=== PATIENT | female | born 1985 | race Caucasian/White ===

== ENCOUNTER 2016-09-30 15:52 | Inpatient (IN) | payer BC, OTHER ==
[~2016-09-30] VITALS: Ht 170.2 cm; Wt 61.2 kg
[2016-09-30] MEDS ORDERED: DIAZEPAM 10 MG TABLET PO PRN ×2 (18:00)
[2016-09-30] MEDS ORDERED: METHOCARBAMOL 750 MG TABLET PO PRN (18:00)
[2016-09-30] MEDS ORDERED: MIRALAX 17 GM POWD.PACK PO PRN (18:00)
[2016-09-30] MEDS ORDERED: HYDROXYZINE PAMOATE 25 MG CAPSULE PO PRN (18:00)
[2016-09-30] MEDS ORDERED: DIAZEPAM 5 MG TABLET PO PRN (18:00)
[2016-09-30] MEDS ORDERED: MAGNESIUM HYDROXIDE 30 ML LIQUID UDC PO PRN (18:00)
[2016-09-30] MEDS ORDERED: diphenhydrAMINE 50 MG CAPSULE PO PRN (18:00)
[2016-09-30] MEDS ORDERED: ACETAMINOPHEN 325 MG TABLET PO PRN (18:00)
[2016-09-30] MEDS ORDERED: LORAZEPAM 2 MG/1 ML VIAL IM PRN (18:00)
[2016-09-30] MEDS ORDERED: DICYCLOMINE HCL 20 MG TABLET PO PRN (18:00)
[2016-09-30] MEDS ORDERED: BUPRENORPHINE HCL 2 MG TAB.SUBL SL PRN (18:00)
[2016-09-30] MEDS ORDERED: THIAMINE HCL 200 MG/2 ML VIAL IM ONE (18:00)
[2016-09-30] MEDS ORDERED: PROMETHAZINE HCL 25 MG/1 ML VIAL IM PRN (18:00)
[2016-09-30] MEDS ORDERED: LOPERAMIDE HCL 2 MG CAPSULE PO PRN ×2 (18:00)
[2016-09-30 18:40] VITALS: BP 110/76; TEMP 97.9
--- NOTE | 2016-09-30 18:40 | NUR ---
Pre-admission note Pt is a 31 y/o female being admitted to [facility] under the care of Dr. Wise. Pt is in stable condition at this time, understands the detox process and wants to be admitted. Pts VS: BP: 110/76, T: 97.9, RR18, SpO2: 100%, P: 112, Pain: 9/10 Height: 5'7" Weight: 135 lb Pt reports taking Heroin, Xanax, alcohol, phenobarbital and occasional use of meth. Pt reports Hx of a Epilepsy.
[2016-09-30 20:00] VITALS: BP 117/78; TEMP 98.1
[2016-09-30] MEDS ORDERED: BUPRENORPHINE HCL 2 MG TAB.SUBL SL SCH (20:00)
[2016-09-30] MEDS ORDERED: DIAZEPAM 10 MG TABLET PO SCH (20:00)
[2016-09-30] MEDS: PHENOBARBITAL 32.4 MG TABLET PO SCH (20:11)
[2016-09-30] MEDS: LEVETIRACETAM 500 MG TABLET PO SCH (20:12)
[2016-09-30] MEDS: SULFAMETH/TRIMETH 800/160 MG TABLET PO SCH (20:12)
[2016-09-30] MEDS: LACTOBACILLUS RHAMNOSUS GG 1 EACH CAPSULE PO SCH (20:12)
[2016-09-30] MEDS: GABAPENTIN 400 MG CAPSULE PO SCH (20:19)
--- NOTE | 2016-09-30 20:45 | NUR ---
ADMISSION NOTE: NEW AD[facility] 31 [facility]; PRE-ADMISSION ASSESSMENT COMPLETED BY DAY SHIFT NURSE. UDS COLLECTED BY DAY SHIFT NURSE. VS: 117/78, 104, 98.1, 18, 100% SPO2 ON RA. COWS IS 9, CIWA IS 9: PT REPORTS ANXIETY, AGITATION, DIAPHORESIS, SEVERE PAIN, EMESIS, NAUSEA, DIARRHEA, TREMOR. HEIGHT IS 57 AND WEIGHT BY BED SCALE IS 135 LBS. PT REPORTS NKDA/NKFA. PT DENIES HAVING PCP. PT ADMITTED UNDER THE CARE OF DR MATHIAS AND HAS ALREADY BEEN EVALUATED. PT REPORTS THE FOLLOWING SUBSTANCE USE: PT REPORTS BEING SOBER FOR TWO YEARS (08/21/2013 TO 2016) AND THEN RELAPSING ONE YEAR AGO. XANAX: PT REPORTS TAKING 10-20MG DAILY. PATIENT REPORTS TAKING XANAX FOR 13 YEARS, AND USING AT THIS RATE FOR 1 YEAR. LAST USE WAS 10MG ON 09/28/16. ETOH: PT REPORTS DRINKING 500ML VODKA DAILY. PATIENT REPORTS DRINKING FOR 13 YEARS, AND AT THIS RATE FOR 1 YEAR. LAST DRINK WAS 5 SHOTS VODKA ON 09/29/16. HEROIN (IV): PT REPORTS USING 3-4GM DAILY. PATIENT REPORTS USING HEROIN FOR 13 YEARS, AND USING AT THIS RATE FOR 1 YEAR. LAST USE WAS 1GM ON 09/28/16. PATIENT REPORTS TAKING NON-PRESCRIBED 8MG BUPRENORPHINE AND 1MG ATIVAN TO CONTROL WITHDRAWAL S/S ON THE DAY OF ADMISSION. PATIENT REPORTS USING 1GM METHAMPHETAMINE (IV) INTERMITTENTLY FOR THE PAST YEAR. LAST USE WAS 1GM ON 09/22/16. PT REPORTS SMOKING ONE PACK CIGARETTES DAILY FOR 18 YEARS. WRITTEN SMOKING CESSATION EDUCATION PROVIDED. PT VERBALIZES UNDERSTANDING. PT REPORTS LAST TREATMENT/DETOX ADMISSION WAS [facility] [place], WHERE SHE LEFT AMA AFTER "A FEW DAYS". PT STATES THAT SHE HAS BEEN TO MULTIPLE TREATMENT AND DETOX FACILITIES IN THE PAST, BUT ALWAYS LEAVES AMA AFTER A FEW DAYS. PT REPORTS PMHX OF EPILEPSY, WITH LAST SEIZURE 07/2016; FIBROMYALGIA, CROHN'S DISEASE, PANIC DO, PTSD. HOME MEDICATIONS HAVE BEEN RECONCILED. PT IS AMBULATORY WITH STEADY GAIT. A&OX4 AND NOTED TO BE AGITATED, DIAPHORETIC, WITH C/O NAUSEA AND DIARRHEA. REPORT RECEIVED FROM DAY SHIFT NURSE THAT PT HAS MULTIPLE TRACK TORRES, BUT PT REFUSES PHOTOS OF SITES OTHER THAN RIGHT FOREARM/WRIST. PHOTO PLACED IN CHART. PT DENIES CURRENT OR HX OF SI/HI. LUNGS ARE CTA THROUGHOUT, RESPIRATIONS ARE EVEN AND UNLABORED. PT DENIES COUGH/SOB. HEART SOUNDS REGULAR. BOWEL SOUNDS ACTIVE IN ALL QUADRANTS. ABDOMEN IS SOFT, NON-DISTENDED, NON-TENDER.
[2016-09-30] MEDS ORDERED: POTASSIUM CHLORIDE 20 MEQ TAB.PRT.SR PO ONE (22:00)
--- NOTE | 2016-09-30 22:00 | NUR ---
PRN'S Subutex, Valium, Clonidine, Robaxin, Benadryl: Patient complains of anxiety, agitation, severe pain and myalgia, diaphoresis, diarrhea, emesis x2, myalgia, tremor, tactile disturbances. COWS is 20 and CIWA is 19. Administered PRN Subutex 4mg SL as ordered according to COWS score, and PRN Valium 20mg PO as ordered according to CIWA score. Patient also requests PRN Clonidine for anxiety and diaphoresis, PRN Robaxin for myalgia and 9/10 pain, and PRN Benadryl for inability to sleep. Will continue to monitor.
[2016-09-30] MEDS ORDERED: POTASSIUM CHLORIDE 20 MEQ TAB.PRT.SR ONE (22:02)
[2016-09-30] MEDS: CLONIDINE HCL 0.1 MG TABLET PO PRN (22:08)
--- NOTE | 2016-09-30 22:30 | NUR ---
PRN Subutex Reassessment: Patient reports a mild decrease is s/s of opiate withdrawal: tremor and diaphoresis decreased, denies any additional episodes of emesis, and pain is decreased. COWS decreased from 20 to 8 thirty minutes after PRN Subutex 4mg SL administration.
--- NOTE | 2016-09-30 23:00 | NUR ---
PRN Reassessment: Patient's CIWA score decreased from 19 to 10 one hour after PRN Valium 20mg PO administration. Pt noted with decreased tremor, diaphoresis. No c/o headache at this time, and denies any additional episodes of emesis. Patient denies myalgia at this time. PRN Robaxin and PRN Clonidine effective. Pt noted to be drowsy; will re-assess PRN Benadryl at end of shift. Fall and seizure precautions are in place, and pt continues on 1:1 with WALL AND FLOOR TILER for safety/fall risk. Will continue to monitor.
[2016-10-01] VITALS (14 sets, daily range): BP systolic 89–115; BP diastolic 53–75; PULSE 84–107; RESP 12–18; TEMP 97.4–98.3
[2016-10-01] MEDS ORDERED: ROBAXIN500 MG PO (00:26)
[2016-10-01] MEDS ORDERED: TRAZODONE HCL300 MG PO (00:26)
[2016-10-01] MEDS ORDERED: DULOXETINE HCL60 MG PO (00:26)
[2016-10-01] MEDS ORDERED: SULFAMETHOXAZO PO (00:26)
[2016-10-01] MEDS ORDERED: CLINDAMYCIN HC300 MG PO (00:26)
[2016-10-01] MEDS ORDERED: GABAPENTIN800 MG PO (00:26)
[2016-10-01] MEDS ORDERED: CARAFATE1 GM PO (00:26)
[2016-10-01] MEDS ORDERED: ESOMEPRAZOLE MA40 MG PO (00:26)
[2016-10-01] MEDS ORDERED: VISTARIL50 MG PO (00:26)
[2016-10-01] MEDS ORDERED: ZANTAC150 MG PO (00:26)
[2016-10-01] MEDS ORDERED: QUETIAPINE FUM400 MG PO (00:26)
[2016-10-01] MEDS ORDERED: NEOSPORIN28 GM TP (00:26)
[2016-10-01] MEDS ORDERED: LEVETIRACETAM500 M1 PO (00:26)
[2016-10-01] MEDS ORDERED: MELOXICAM15 MG PO (00:26)
--- NOTE | 2016-10-01 03:20 | NUR ---
PRN Valium 10mg: Patient complains of anxiety, chills, diaphoresis, tremor. Patient noted to be agitated. CIWA is 10. Administered PRN Valium 10mg as ordered according to CIWA score. Will continue to monitor.
--- NOTE | 2016-10-01 04:00 | NUR ---
COWS/CIWA Deferred: Ordered 04:00 COWS and CIWA assessments are deferred for sleep. V/S stable. All safety precautions are in place. Will continue to monitor. Addendum: 10/01/16 at 0426 by TAE BOWERS RN Amended: Links added.
--- NOTE | 2016-10-01 04:15 | NUR ---
PRN Reassessment: Patient reports decrease in anxiety, chills, diaphoresis, and tremor. CIWA decreased from 10 to 4 one hour after PRN Valium 10mg PO administration. Will continue to monitor.
--- NOTE | 2016-10-01 07:06 | NUR ---
End of Shift Note: Pt is a 31 yo female admitted to [facility] on 09/30/16 for medically-supervised withdrawal from ETOH, opiates, and benzodiazepines. Pt reports PMHx: epilepsy, Crohn's, fibromyalgia, PTSD, and panic DO with agoraphobia . Pt reports NKDA/NKFA. Pt is on a regular diet. Pt is on 1:1 for safety: high risk for falls d/t multiple sedating medications ordered (Keppra, Pheno, Bharat, Valium, Subutex). Pt reports being sober for 2 years, and then relapsing one year ago. Pt has been taking 10-20mg Xanax, using 3-4gm IV heroin, and drinking 500ml vodka daily for one year. Pt is on 5-day Subutex and Valium tapers. Scheduled medication regime managed s/s of withdrawal this shift, in addition to multiple PRN medications: PRN Subutex 4mg for COWS 20, PRN Valium 20mg for CIWA 19, PRN Clonidine for anxiety, PRN Robaxin for myalgia, and PRN Valium 10mg for CIWA 10: all effective. Last COWS=7, CIWA=4. Pt c/o multiple episodes of emesis and diarrhea, but URBAN SOCIOLOGIST reports that she did not observe or hear incidents, and pt refuses Zofran and Imodium. PRN Benadryl was given for inability to sleep, which was not effective as pt slept only 4 hours. V/S stable throughout shift, with decreased BP of 91/58 at 00:00. Total fluid intake this shift: 1802 ml; output: urine x 5 and BM x 1. Pt is currently in bed, all needs have been attended and met. Pt endorsed to day shift nurse.
--- NOTE | 2016-10-01 07:30 | NUR ---
START OF SHIFT Rcvd endorsement from night nurse, client is in room, she sound asleep, easy to arouse, RR 16 even and non-labored. 1:1 sitter for fall prevention safety for first 24 hours during induction process of withdrawal management; patient noted to be receiving multiple psychoactive substances that can increase risk of oversedation or falls. Client admitted for medically-supervised withdrawal from ETOH, opiates, and benzodiazepines. NKDA/NKFA. Regular diet (No Pork). PRN Subutex 4mg for COWS 20, PRN Valium 20mg for CIWA 19, PRN Clonidine for anxiety, PRN Robaxin for myalgia, and PRN Valium 10mg for CIWA 10: all effective. Last COWS 7/CIWA 4. PRN Benadryl was given for inability to sleep, ineffective she slept 4 hours. She is on antibiotic therapy Clindamycin 300mg Q8H for R arm abscess (6 days)and Bactrim BID for infection (1/6 x days). Seizure precautions. Side rails x 2 up/padded. Call light within reach. Will continue plan of care.
[2016-10-01] MEDS: LEVETIRACETAM 500 MG TABLET PO SCH ×3 (08:23→22:20)
[2016-10-01] MEDS: BUPRENORPHINE HCL 2 MG TAB.SUBL SL SCH ×4 (08:23→21:50)
[2016-10-01] MEDS: FOLIC ACID 1 MG TABLET PO SCH (08:23)
[2016-10-01] MEDS: MULTIVITAMINS,THERAPEUTIC TABLET PO SCH (08:23)
[2016-10-01] MEDS: SULFAMETH/TRIMETH 800/160 MG TABLET PO SCH (08:23)
[2016-10-01] MEDS: PHENOBARBITAL 32.4 MG TABLET PO SCH (08:23)
[2016-10-01] MEDS: GABAPENTIN 400 MG CAPSULE PO SCH ×3 (08:23→16:10)
[2016-10-01] MEDS: LACTOBACILLUS RHAMNOSUS GG 1 EACH CAPSULE PO SCH (08:23)
[2016-10-01] MEDS: CLINDAMYCIN HCL 300 MG CAPSULE PO SCH ×2 (08:24→15:55)
[2016-10-01] MEDS: THIAMINE HCL 100 MG TABLET PO SCH (08:24)
[2016-10-01] MEDS ORDERED: TUBERCULIN,PURIF.PROT.DERIV. 5 TU/0.1 ML TEST ID ONE (09:00)
[2016-10-01] MEDS ORDERED: DIAZEPAM 10 MG TABLET PO SCH (09:00)
--- NOTE | 2016-10-01 10:00 | NUR ---
Client refused TB test. Dr. Wise notified.
[2016-10-01] MEDS ORDERED: DIAZEPAM 10 MG TABLET PO ONE (12:00)
[2016-10-01] MEDS ORDERED: PANTOPRAZOLE SODIUM 40 MG TABLET.DR PO ONE (12:45)
[2016-10-01] MEDS: HYDROXYZINE PAMOATE 25 MG CAPSULE PO SCH ×3 (12:46→21:50)
--- NOTE | 2016-10-01 12:49 | NUR ---
DR. MARTI, ORDERED AN ECG D/T ON MEDICATION THAT MAY PROLONG QT INVERVAL, CLIENT VERBALIZED UNDERSTANDING.
[2016-10-01] MEDS ORDERED: HYDROXYZINE PAMOATE 100 MG PO SCH (13:00)
--- NOTE | 2016-10-01 13:07 | NUR ---
MD communication Pt has a Hgb of 7.74 [address] Hct of 24. Dr Wise notified, stated he would come and talk to pt. Will continue to monitor pt.
[2016-10-01] MEDS ORDERED: BUPRENORPHINE HCL 2 MG TAB.SUBL SL ONE (13:45)
[2016-10-01] MEDS: ONDANSETRON ODT 4 MG TAB.RAPDIS SL PRN ×2 (14:04→21:38)
--- NOTE | 2016-10-01 14:04 | NUR ---
PRN Zofran 4mg Client with an episode of emesis and continuos nausea, PRN Zofran 4mf SL administered. Saltine crackers and miles destinee offered. Will continue to monitor.
[2016-10-01] MEDS ORDERED: diphenhydrAMINE 50 MG CAPSULE PO PRN (14:15)
[2016-10-01] MEDS ORDERED: ACETAMINOPHEN 325 MG TABLET PO PRN (14:15)
[2016-10-01] MEDS: DIAZEPAM 10 MG TABLET PO SCH ×3 (14:18→22:20)
[2016-10-01] MEDS: PHENOBARBITAL 60 MG TABLET PO SCH (14:18)
[2016-10-01] MEDS ORDERED: PHENOBARBITAL 32.4 MG TABLET PO SCH (15:00)
--- NOTE | 2016-10-01 15:04 | NUR ---
Reassessment PRN Zofran 4mg Client reports no more episode of emesis and relief from nausea, PRN Zofran 4mg effective. Will continue to monitor.
[2016-10-01] MEDS: DULOXETINE 60 MG CAPSULE.DR PO SCH (16:10)
--- NOTE | 2016-10-01 17:05 | NUR ---
MD communication Notified Dr Wise of EKG results: sinus tachycardia, possible anterior infarct, age undermined, abnormal ECG. NNO at this time.
--- NOTE | 2016-10-01 17:14 | NUR ---
PERIPHERAL IV ON RIGHT UPPER ARM (20G) X 2 ATTEMPTS, CLIENT TOLERATED WELL.
--- NOTE | 2016-10-01 17:15 | NUR ---
client states "I do not want the blood transfusion at this time." Educate client of the need for blood transfusion d/t her hgb and hct. She stated "I know, I know, but I don't want it right now." Charge nurse and MD notified.
--- NOTE | 2016-10-01 17:45 | NUR ---
Client c/o two episodes of oral regurgitation, d/t binge eating, Dr. Wise notified. Sitter noted client putting finger in her mouth prior to empty her stomach.
[2016-10-01] MEDS ORDERED: DIAZEPAM 10 MG TABLET PO PRN ×2 (18:45)
[2016-10-01] MEDS ORDERED: BUPRENORPHINE HCL 2 MG TAB.SUBL SL PRN (18:45)
[2016-10-01] MEDS ORDERED: DIAZEPAM 5 MG TABLET PO PRN (18:45)
--- NOTE | 2016-10-01 19:10 | NUR ---
Start of Shift Note: Report received from day shift nurse. Pt is a 31yo female admitted on 09/30/16 for opiate, benzodiazepine, and ETOH dependence. Pt reports using Xanax 10-20mg/day, heroin IV 3-4gm/day, and drinking 500mL vodka daily for one year. Pt continues on 5-day Valium and Subutex tapers. Pt received with last COWS=9, CIWA=7, and PRN Zofran was given during day shift. Pt on regular diet and reports NKDA/NKFA. Pt reports PMHx: epilepsy (Keppra, Pheno, and Bharat ordered for management, last sz 07/2016), fibromyalgia, Crohn's, PTSD, and panic DO with agoraphobia. Pt to start blood transfusion, one unit, for low H&H. New ECG results, possible infarct. Stool sample collection endorsed, pt aware. Pt received in room, noted to be drowsy but continues to ask for medications. Bed is in low position and locked, side rails up x2, call light within reach. Pt continues on 1:1 for safety/fall risk. Will continue to monitor.
--- NOTE | 2016-10-01 19:14 | NUR ---
Blood transfusion running, vitals prior to administration wnl, two RN's follow protocol. Client in bed, she verbalized understanding regarding bllod transfusion.
--- NOTE | 2016-10-01 19:28 | NUR ---
End of Shift Note: Pt is a 31 yo female admitted to [facility] on 09/30/16 for medically-supervised withdrawal from ETOH, opiates, and benzodiazepines. Peripheral IV on R upper arm (20G). Pt is on modified 5-day Subutex and Valium tapers. Scheduled medication regime managed s/s of withdrawal this shift, Zofran PRN for emesis x 1 episode, effective.Last COWS 9/CIWA 7. Client c/o two episodes of oral regurgitation, d/t binge eating, Dr. Wise notified. aeronautics teacher Benadryl 50mg and Tylenol 650mg 0.5 hr prior to blood transfusion. Pt is currently in bed, receiving transfusion, all needs have been attended and met. Pt endorsed to night nurse.
--- NOTE | 2016-10-01 19:28 | NUR ---
End of Shift Note: Pt is a 31 yo female admitted to [facility] on 09/30/16 for medically-supervised withdrawal from ETOH, opiates, and benzodiazepines. Pheripheral IV on R upper arm (20G). Pt is on modified 5-day Subutex and Valium tapers. Scheduled medication regime managed s/s of withdrawal this shift, Zofran PRN for emesis x 1 episode, effective.Last COWS 9/CIWA 7. Client c/o two episodes of oral regurgitation, d/t binge eating, Dr. Wise notified. call center manager Benadryl 50mg and Tylenol 650mg 0.5 hr prior to blood transfusion. was given for inability to sleep, which was not effective as pt slept only 4 hours. V/S stable throughout shift, with decreased BP of 91/58 at 00:00. Total fluid intake this shift: 1802 ml; output: urine x 5 and BM x 1. Pt is currently in bed, all needs have been attended and met. Pt endorsed to day shift nurse. Addendum: 10/01/16 at 1957 by AILYN DOMINIQUE RN error
[2016-10-01] MEDS ORDERED: QUETIAPINE FUMARATE 400 MG PO SCH (21:00)
[2016-10-01] MEDS ORDERED: PHENOBARBITAL 60 MG TABLET PO SCH (21:00)
[2016-10-01] MEDS: QUETIAPINE FUMARATE 200 MG TABLET PO SCH (21:50)
--- NOTE | 2016-10-01 21:51 | NUR ---
Transfusion End/Behavioral Note/Meds Late: Pt completed blood transfusion and IV NS running TKO and clear line. Pt became agitated that her 21:00 scheduled medications were not going to be administered all at one time d/t over-sedation and decreased BP throughout transfusion. RN informed pt that she would be administered scheduled Valium and Keppra for seizure-prevention and then administered remaining medications after one hour to re-evaluate BP and sedation. Pt became verbally abusive with staff members and demanded she be disconnected from IV. Multiple staff members (primary nurse, COOK APPRENTICE PASTRY, client services representative, and charge nurse) spoke to pt regarding medication safety and MD order. Pt educated on risks and benefits but became increasingly agitated, and IV was disconnected at 21:51 and site flushed and kept SL. Pt continued to argue with staff members, demanding all of her medications be administered all at once. Pt noted with unsteady gait, slurring words, with difficulty keeping eyes open. Pt states, "I'm going to rip out this IV if you don't give me all of my meds". Pt educated on risks and benefits but ripped out IV at 22:15. Pressure applied to site and dressed with sterile gauze. Administered 21:00 scheduled Keppra and Valium late, at 22:20. Pt re-evaluated for alertness, and remaining medications except for Subutex, Seroquel, and Vistaril administered at 00:28. Will continue to monitor. Addendum: 10/02/16 at 0131 by TAE BOWERS RN Pt tolerated transfusion well. No A/R observed or reported. V/S stable throughout procedure without significant deviation from baseline. Addendum: 10/02/16 at 0230 by TAE BOWERS RN MD conner
--- NOTE | 2016-10-01 22:00 | NUR ---
MD Communication: MD made aware of behavioral incident, IV removal, over-sedation, decreased BP, meds administered late, and meds held for sedation.
[2016-10-02] VITALS (7 sets, daily range): BP systolic 85–133; BP diastolic 56–92; TEMP 97.7–98.7
[2016-10-02] MEDS: ONDANSETRON ODT 4 MG TAB.RAPDIS SL PRN (00:12)
--- NOTE | 2016-10-02 00:15 | NUR ---
PRN Zofran: BARTACKER on 1:1 reports observing pt vomiting on smoking patio. Emesis x2 reported. Pt reports that she is still nauseous. Administered PRN Zofran ODT as ordered. Will continue to monitor.
[2016-10-02] MEDS: SULFAMETH/TRIMETH 800/160 MG TABLET PO SCH ×3 (00:28→21:05)
[2016-10-02] MEDS: LACTOBACILLUS RHAMNOSUS GG 1 EACH CAPSULE PO SCH ×3 (00:28→21:05)
[2016-10-02] MEDS: PHENOBARBITAL 60 MG TABLET PO SCH ×4 (00:28→21:07)
[2016-10-02] MEDS: GABAPENTIN 400 MG CAPSULE PO SCH ×3 (00:29→12:38)
--- NOTE | 2016-10-02 00:45 | NUR ---
PRN Zofran Reassessment: Patient denies any additional episodes of emesis and reports that she is no longer nauseous. PRN Zofran effective. Will continue to monitor.
--- NOTE | 2016-10-02 04:00 | NUR ---
COWS/CIWA Deferred: COWS and CIWA assessments are deferred for sleep. V/S stable. All safety precautions are in place. Will continue to monitor. Addendum: 10/02/16 at 0438 by TAE BOWERS RN Amended: Links added.
[2016-10-02] MEDS: PANTOPRAZOLE SODIUM 40 MG TABLET.DR PO SCH (06:42)
--- NOTE | 2016-10-02 07:06 | NUR ---
End of Shift Note: Pt is a 31 yo female admitted to [facility] on 09/30/16 for medically-supervised withdrawal from ETOH, benzodiazepines, and opiates. Pt reports PMHx: Crohn's disease, epilepsy (managed with pheno, Keppra, Bharat), fibromyalgia, PTSD, and panic DO with agoraphobia. Pt reports NKDA/NKFA and is on a regular diet. Pt is on 1:1 for safety/fall risk. Pt reports being sober for 2 years, relapsing one year ago, and then taking 10-20mg Xanax, using 3-4gm IV heroin, and drinking 500ml vodka daily. Pt is on 5-day Subutex and 6-day Valium tapers. Pt received one unit of blood this shift for low hct and hgb, pt tolerated procedure well. Medications administered late d/t sedation, and scheduled Subutex, Vistaril, and Seroquel held. Pt had behavioral incident this shift regarding medication, and removed IV. PRN Zofran was given for emesis x2 and nausea, which was effective. Endorsed stool sample collection not completed this shift as pt did not have a bowel movement. Last COWS=9, CIWA=6. V/S stable throughout shift, with decreased BP of 89/53 at 20:00 and 85/56 at 04:00, and elevated HR of 107 at 20:00 and 101 at 00:00. Total fluid intake this shift: 450 ml; output: urine x 3 and BM x 0. Pt is currently in bed, slept 7 hours this shift, all needs have been attended and met. Pt endorsed to day shift nurse.
--- NOTE | 2016-10-02 08:05 | NUR ---
START OF SHIFT: RECEIVED PT A/O X 4. SHE REPORTS RUNNY NOSE,ANXIETY AND RESTLESSNESS. CIWA 3 COWS 4. SHE IS HYPER FOCUSED ON MEDICATIONS. 1:1 SITTER AT BEDSIDE. PT INSTRUCTED TO USE W/C TO GO DOWNSTAIRS TO [facility] FOR SAFETY. VALIUM/SUBUTEX TAPER. PHENOBARB. AND KEPPRA TO PREVENT SEIZURES. SZ PRECAUTIONS NOTED. ENCOURAGED INCREASED FLUIDS TO ASSIST IN FACILITATING DETOX PROCESS. ENCOURAGED GROUP ATTENDANCE TO IMPROVE COPING SKILLS. WILL CONTINUE TO MONITOR AND OFFER SUPPORT.
[2016-10-02] MEDS ORDERED: BUPRENORPHINE HCL 2 MG TAB.SUBL SL SCH (09:00)
[2016-10-02] MEDS ORDERED: DIAZEPAM 10 MG TABLET PO SCH (09:00)
[2016-10-02] MEDS: MULTIVITAMINS,THERAPEUTIC TABLET PO SCH (09:39)
[2016-10-02] MEDS: HYDROXYZINE PAMOATE 25 MG CAPSULE PO SCH ×4 (09:39→21:08)
[2016-10-02] MEDS: DULOXETINE 60 MG CAPSULE.DR PO SCH ×2 (09:40→16:10)
[2016-10-02] MEDS: FOLIC ACID 1 MG TABLET PO SCH (09:40)
[2016-10-02] MEDS: THIAMINE HCL 100 MG TABLET PO SCH (09:40)
[2016-10-02] MEDS: DIAZEPAM 10 MG TABLET PO SCH ×4 (09:41→21:08)
[2016-10-02] MEDS: LEVETIRACETAM 500 MG TABLET PO SCH ×2 (09:41→21:06)
[2016-10-02] MEDS: BUPRENORPHINE HCL 2 MG TAB.SUBL SL SCH ×4 (09:42→21:08)
[2016-10-02] MEDS: GABAPENTIN 300 MG CAPSULE PO SCH ×2 (16:09→21:05)
[2016-10-02] MEDS: BACLOFEN 20 MG TABLET PO PRN (16:10)
--- NOTE | 2016-10-02 18:25 | NUR ---
END OF SHIFT: PT CONTINUES ON MODIFIED SUBUTEX/ATIVAN TAPER. LAST COWS 4 CIWA 3. SHE REPORTED ANXIETY,CHILLS AND SWEATS THIS AM. 1:1 SITTER AT BEDSIDE FOR SAFETY. PT ATTENDED GROUPS. VOMITING AFTER EATING X 2 TODAY. SHE STATES IT DOES NOT HAPPEN ON PURPOSE AND IS NOT RELATED TO HER ED. SHE STATES SHE ALWAYS HAS TROUBLE KEEPING FOOD DOWN WHEN SHE IS DETOXING. SHE C/O ACHES IN HER BACK THIS AFTERNOON. PRN BACLOFEN GIVEN AND EFFECTIVE.PT'S BEHAVIOR WAS APPROPRIATE ON DAY SHIFT.
--- NOTE | 2016-10-02 20:00 | NUR ---
START OF SHIFT NOTE RECEIVED PATIENT IN THE ROOM. PATIENT ALERT AND ORIENTED X 3. RESPIRATION EVEN AND UNLABORED. PATIENT REPORTS ABDOMINAL CRAMPING, CHILLS, STUFFY NOSE, SWEATING, GENERALIZED BODY ACHES 10/30. PATIENT STATES SHE ATTENDED GROUPS BUT NOT THE LAST ONE BECAUSE SHE WAS TIRED. NO N/V AT THIS TIME. RECEIVED REPORT FROM DAY SHIFT NURSE, PATIENT IS A 31 YEAR OLD FEMALE, ADMITTED FOR BENZO/ETOH /OPIATE DEPENDENCE. PATIENT IS ON 5 DAY VALIUM AND 5 DAY SUBUTEX TAPER. PATIENT IS FULL CODE, REGULAR DIET ( NO PORK) AND NO KNOWN ALLERGY. PATIENT REPORTS PMH OF EPILEPSY , FIBROMYALGIA, CROHN'S , PTSD AND PANIC D/O WITH AGORAPHOBIA. PATIENT HAD SEIZURE HISTORY LAST ONE WAS 07/2016. PATIENT IS ON 1:1 FOR SAFETY D/T MED SEDATION (PHENO,KEPPRA, SUBUTEX AND VALIUM ). PATIENT IS ON ANTIBIOTIC FOR RIGHT FOREARM ABSCESS. POTASSIUM WAS REPLACED, PATIENT WITH ABNORMAL EKG, MD AWARE. LAST COWS 4 AND CIWA 3. PER DAY SHIFT NURSE, PATIENT HAD EMESIS X2 AFTER EATING BUT REFUSES TO TAKE ANY MEDICATION. PRN BACLOFEN GIVEN DURING THE DAY. ON FALL/SEIZURE PRECAUTION.SAFETY MEASURES IN PLACE. CALL LIGHT IN REACH. WILL CONTINUE TO MONITOR.
[2016-10-02] MEDS: PRAZOSIN HCL 1 MG CAPSULE PO SCH (21:06)
[2016-10-02] MEDS: QUETIAPINE FUMARATE 200 MG TABLET PO SCH (21:07)
[2016-10-03] VITALS: BP 93/69; TEMP 97.6
[2016-10-03 04:00] VITALS: BP 86/59; TEMP 97.1
[2016-10-03] MEDS: PANTOPRAZOLE SODIUM 40 MG TABLET.DR PO SCH (07:16)
--- NOTE | 2016-10-03 07:34 | NUR ---
END OF SHIFT NOTE MONITORED PATIENT THROUGHOUT THE NIGHT. PATIENT REMAIN STABLE. RESPIRATION EVEN AND UNLABORED. PATIENT REPORTED ABDOMINAL CRAMPING, CHILLS, STUFFY NOSE, SWEATING, GENERALIZED BODY ACHES 6/10 DURING SHIFT. PATIENT STATES SHE ATTENDED GROUPS BUT NOT THE LAST ONE BECAUSE SHE WAS TIRED. PATIENT VOMITED X 1 AFTER EATING, PATIENT DID NOT WANT ZOFRAN. PATIENT CONTINUE ON 5 DAY VALIUM AND 5 DAY SUBUTEX TAPER, TOLERATED WELL. PATIENT CONTINUE ON 1:1 FOR SAFETY D/T MED SEDATION (PHENO,KEPPRA, SUBUTEX AND VALIUM ). PATIENT IS ON ANTIBIOTIC FOR RIGHT FOREARM ABSCESS WITH NO ADVERSE REACTION. ENCOURAGE FLUIDS. PATIENT DID NOT RECEIVE ANY PRN MEDICATION DURING SHIFT. PATIENT EDUCATED ON MEDICATIONS AND IT'S EFFECTS. ON FALL/SEIZURE PRECAUTION.SAFETY MEASURES IN PLACE. CALL LIGHT IN REACH. WILL CONTINUE TO MONITOR. SLEPT 7 HOURS. FLUID INTAKE 829 ML. VOIDED X 2. NO BM. LAST COWS 2 AND CIWA 1.
--- NOTE | 2016-10-03 07:45 | NUR ---
START OF SHIFT Rcvd endorsement from night nurse, client is in room, she sound asleep, easy to arouse, RR 16 even and non-labored. 1:1 sitter for fall prevention safety, patient noted to be receiving multiple psychoactive substances that can increase risk of oversedation or falls. Client admitted for medically-supervised withdrawal from ETOH, opiates, and benzodiazepines. NKDA/NKFA. Regular diet (No Pork). She had an uneventful night. Last COWS 2/CIWA 1. She is on antibiotic therapy Bactrim BID for infection (4/5 x days). Seizure precautions. Side rails x 2 up/padded. Call light within reach. Will continue plan of care.
[2016-10-03 08:55] VITALS: BP 110/81; TEMP 97.5
[2016-10-03] MEDS: BUPRENORPHINE HCL 2 MG TAB.SUBL SL SCH ×3 (08:55→22:02)
[2016-10-03] MEDS: PHENOBARBITAL 60 MG TABLET PO SCH ×3 (08:55→22:03)
[2016-10-03] MEDS: DIAZEPAM 10 MG TABLET PO SCH ×3 (08:56→22:02)
[2016-10-03] MEDS: MULTIVITAMINS,THERAPEUTIC TABLET PO SCH (08:56)
[2016-10-03] MEDS: HYDROXYZINE PAMOATE 25 MG CAPSULE PO SCH ×4 (08:56→21:41)
[2016-10-03] MEDS: SULFAMETH/TRIMETH 800/160 MG TABLET PO SCH ×2 (08:56→21:42)
[2016-10-03] MEDS: FOLIC ACID 1 MG TABLET PO SCH (08:56)
[2016-10-03] MEDS: DULOXETINE 60 MG CAPSULE.DR PO SCH ×2 (08:56→17:28)
[2016-10-03] MEDS: GABAPENTIN 300 MG CAPSULE PO SCH ×4 (08:56→21:42)
[2016-10-03] MEDS: LEVETIRACETAM 500 MG TABLET PO SCH ×2 (08:56→21:40)
[2016-10-03] MEDS: THIAMINE HCL 100 MG TABLET PO SCH (08:56)
[2016-10-03] MEDS: LACTOBACILLUS RHAMNOSUS GG 1 EACH CAPSULE PO SCH ×2 (08:56→21:41)
[2016-10-03] MEDS ORDERED: DIAZEPAM 5 MG TABLET PO SCH (09:00)
[2016-10-03] MEDS ORDERED: BUPRENORPHINE HCL 2 MG TAB.SUBL SL SCH ×2 (09:00→15:00)
--- NOTE | 2016-10-03 11:00 | NUR ---
Rose reports one episode of emesis, after large quantity of food ingested. Encourage client to eat smaller meals, more often of she needs to, in order to avoid emesis. She stated' "I did not eat a lot, but I have trouble keeping food due to nausea while detoxing." She denies any nausea at this time. Will continue to monitor.
[2016-10-03 12:00] VITALS: BP 112/69; TEMP 98.7
--- NOTE | 2016-10-03 12:50 | NUR ---
nursing notes Client reports generalized body aches 01/30, she refused PRN at this time stating "No, I just wait take my gabapentin, that usually helps." Sitter at bedside promoting safety. Call light within reach. Will continue to monitor.
--- NOTE | 2016-10-03 13:50 | NUR ---
Client reports relief from generalized body aches 06/01, but manageable. Call light within reach. Will continue to monitor.
--- NOTE | 2016-10-03 14:00 | NUR ---
Client had another episode of emesis, after binge eating. Charge nurse and Dr. Wise notified, NNO at this time. Client refused medications to assist with emesis or nausea, she stated "No, it will get better, it happens when I am in detox." Sitter at bedside.
[2016-10-03] MEDS: CLONIDINE HCL 0.1 MG TABLET PO PRN (14:59)
--- NOTE | 2016-10-03 14:59 | NUR ---
PRN Clonidine 0.1mg for irritability, hot/cold chills. Will continue to monitor.
--- NOTE | 2016-10-03 15:59 | NUR ---
Reassessment PRN Clonidine Client is in bed, sound asleep, RR 16, even, non-labored. Clonidine effective.
[2016-10-03] MEDS ORDERED: METHYL SALICYLATE/MENTHOL CREAM 28 GM TUBE TOP PRN (16:15)
[2016-10-03 16:55] VITALS: BP 107/69; TEMP 98.1
--- NOTE | 2016-10-03 18:51 | NUR ---
PRN Bentyl, Baclofen Client reports abdominal spasm, bentyl 20mg Po administered, she complains of severe lack and legs muscle spasm baclofen 20mg PO administered. Will endorse incoming nurse to reassess.
[2016-10-03] MEDS: BACLOFEN 20 MG TABLET PO PRN (18:52)
--- NOTE | 2016-10-03 19:32 | NUR ---
END OF START Client continues on modified Diazepam/Subutex taper, tolerating well. Last COWS 7/CIWA 5. Client vomited x 2 after eating large quantities of food, she stated "... it happens when I am in detox." PRN Clonidine for irritability, hot/cold chills, noted effective. Client reports abdominal spasm, bentyl 20mg Po administered, she complains of severe lack and legs muscle spasm baclofen 20mg PO administered. Will endorse incoming nurse to reassess. Client did not attend group therapy. Adequate intake and output, void x 4, no BM. Seizure precautions. Side rails x 2 up/padded. Call light within reach. Will continue plan of care.
[2016-10-03 20:00] VITALS: BP 101/61; TEMP 97.8
--- NOTE | 2016-10-03 20:00 | NUR ---
START OF SHIFT NOTE PATIENT IN ROOM, PATIENT REPORTS HOLD AND COLD SWEATS, ANXIETY, GENERALIZED BODY ACHES , ABDOMINAL CRAMPING, STUFFY NOSE , MILD AGITATION AND IRRITABLE. RECEIVED REPORT FROM DAY SHIFT NURSE. PATIENT IS A 31 YEAR OLD FEMALE, ADMITTED FOR BENZO/ETOH/OPIATE DEPENDENCE. PATIENT IS ON 3RD DAY OF HER 5 DAY SUBUTEX AND 5 DAY VALIUM TAPER. PATIENT IS FULL CODE, REGULAR DIET ( NO PORK) AND NO KNOWN ALLERGY. CONTINUE ON 1:1 SITTER FOR SAFETY. PATIENT REPORTS PMH OF EPILEPSY, FIBROMYALGIA, CROHN'S, PTSD, PANIC D/O WITH AGORAPHOBIA AND SEIZURE, LAST ONE WAS 07/2016. PATIENT IS ON FALL/SEIZURE PRECAUTION. PATIENT ON ANTIBIOTIC FOR HER ABSCESS ON RIGHT FOREARM. PATIENT WAS GIVEN PRN CLONIDINE, BENTYL AND BACLOFEN DURING THE DAY. LAST COWS 7 AND CIWA 5. SAFETY MEASURES IN PLACE. CALL LIGHT IN REACH. WILL CONTINUE TO MONITOR.
[2016-10-03] MEDS: PROPRANOLOL HCL 10 MG TABLET PO SCH (21:00)
--- NOTE | 2016-10-03 21:00 | NUR ---
INDERAL HELD PATIENT BP 101/60, INDERAL HELD ORDERED FOR DOSE INSTRUCTION TO HOLD IF BP<100/70
[2016-10-03] MEDS: QUETIAPINE FUMARATE 200 MG TABLET PO SCH (21:41)
[2016-10-03] MEDS: DICYCLOMINE HCL 20 MG TABLET PO SCH (21:43)
[2016-10-03] MEDS: PRAZOSIN HCL 1 MG CAPSULE PO SCH (22:02)
[2016-10-04] VITALS: BP 98/62; TEMP 98
[2016-10-04 04:00] VITALS: BP 86/56; TEMP 98.2
[2016-10-04] MEDS: PANTOPRAZOLE SODIUM 40 MG TABLET.DR PO SCH (07:04)
--- NOTE | 2016-10-04 07:30 | NUR ---
start of shift note: received pt from court orderly nurse, pt is in stable condition at this time. pt remains on 1:1 for seizure precautions. pt without episodes of seizures at this time. pt is admitted to [facility] for opiate/benzo/ETOH/meth withdrawal/dependence. pt's last ciwa 1 and last cows 2. will continue to monitor pt for any changes or any A/R to medications. will encourage pt to attend groups and activities throughout the shift.
--- NOTE | 2016-10-04 07:30 | NUR ---
END OF SHIFT NOTE MONITORED PATIENT THROUGHOUT SHIFT. PATIENT REPORTED HOT AND COLD SWEATS, ANXIETY, GENERALIZED BODY ACHES , ABDOMINAL CRAMPING, STUFFY NOSE , MILD AGITATION AND IRRITABLE. CONTINUE PATIENT HER 5 DAY SUBUTEX AND 5 DAY VALIUM TAPER, TOLERATED WELL . CONTINUE ON 1:1 SITTER FOR SAFETY. PATIENT CONTINUE TO EDUCATE ON MEDICATIONS AND SIDE EFFECTS. PATIENT ON ANTIBIOTIC FOR HER ABSCESS ON RIGHT FOREARM WITH NO ADVERSE REACTION. ENCOURAGE FLUIDS. PATIENT WAS SEEN BY DR. BENNETT AND SCHEDULED INCISION AND DRAINAGE TODAY. INDERAL WAS HELD FOR BLOOD PRESSURE 101/61 AT 2100. PATIENT DID NOT REQUIRE ANY PRN MEDICATION DURING SHIFT. ON FALL/SEIZURE PRECAUTION. SAFETY MEASURES IN PLACE. CALL LIGHT IN REACH. WILL CONTINUE TO MONITOR. SLEPT 8 HOURS. FLUID INTAKE 474 ML. VOIDED X 3. NO BM. LAST COWS 2 AND CIWA 1.
[2016-10-04] MEDS ORDERED: SILVER NITRATE APPLICATOR STICK EACH TP PRN (08:00)
[2016-10-04] MEDS ORDERED: LIDOCAINE 1%-EPI 1:100,000 20 ML VIAL TP PRN (08:00)
[2016-10-04] MEDS ORDERED: BUPRENORPHINE HCL 2 MG TAB.SUBL SL SCH ×2 (09:00)
[2016-10-04] MEDS ORDERED: DIAZEPAM 5 MG TABLET PO SCH (09:00)
[2016-10-04] MEDS: MULTIVITAMINS,THERAPEUTIC TABLET PO SCH (09:00)
[2016-10-04] MEDS: LEVETIRACETAM 500 MG TABLET PO SCH ×2 (09:23→20:59)
[2016-10-04] MEDS: GABAPENTIN 300 MG CAPSULE PO SCH ×4 (09:23→20:58)
[2016-10-04] MEDS: THIAMINE HCL 100 MG TABLET PO SCH (09:24)
[2016-10-04] MEDS: PROPRANOLOL HCL 10 MG TABLET PO SCH ×2 (09:24→21:02)
[2016-10-04] MEDS: HYDROXYZINE PAMOATE 25 MG CAPSULE PO SCH ×4 (09:24→21:53)
[2016-10-04] MEDS: DULOXETINE 60 MG CAPSULE.DR PO SCH ×2 (09:24→17:00)
[2016-10-04] MEDS: DICYCLOMINE HCL 20 MG TABLET PO SCH ×3 (09:24→21:00)
[2016-10-04] MEDS: PHENOBARBITAL 60 MG TABLET PO SCH ×3 (09:25→21:00)
[2016-10-04] MEDS: FOLIC ACID 1 MG TABLET PO SCH (09:25)
[2016-10-04] MEDS: DIAZEPAM 5 MG TABLET PO SCH ×4 (09:25→21:54)
[2016-10-04] MEDS: SULFAMETH/TRIMETH 800/160 MG TABLET PO SCH ×2 (09:25→20:59)
[2016-10-04] MEDS: LACTOBACILLUS RHAMNOSUS GG 1 EACH CAPSULE PO SCH ×2 (09:25→20:58)
[2016-10-04] MEDS: BACLOFEN 20 MG TABLET PO PRN (09:35)
--- NOTE | 2016-10-04 09:35 | NUR ---
PRN ADMINISTRATION: PT VERBALIZES BACK PAIN, PAIN LEVEL 8/10. WILL REASSESS PT FOR EFFECTIVENESS
[2016-10-04 10:00] VITALS: BP 110/68; TEMP 97.6
--- NOTE | 2016-10-04 10:00 | NUR ---
PRN RE:ASSESSMENT: PT STATES BACLOFEN IS EFFECTIVE PT'S PAIN SCALE IS 3/10
--- NOTE | 2016-10-04 10:07 | NUR ---
REASSESSED PT, PT'S 1:1 WAS DISCONTINUED
[2016-10-04] MEDS ORDERED: DOCUSATE SODIUM 250 MG CAPSULE PO PRN (11:30)
[2016-10-04 13:11] VITALS: BP 119/66; TEMP 98.6
[2016-10-04] MEDS: BUPRENORPHINE HCL 2 MG TAB.SUBL SL SCH ×2 (14:37→22:00)
[2016-10-04] MEDS: QUETIAPINE FUMARATE 25 MG TABLET PO PRN (14:43)
--- NOTE | 2016-10-04 14:43 | NUR ---
PRN ADMINISTRATION: PT WAS SPEAKING WITH CAMI FROM DIRECT SALES CONSULTANT, PT WAS AGITATED AND ANXIOUS, PT RECEIVED CLONIDINE,SEROQUEL,ZOFRAN. PT VERBALIZED ANXIETY, WAS NOTED FIDGETY AND RESTLESS. AND PACING. WILL RE-ASSESS IF PRN ADMINISTRATION WAS EFFECTIVE.
[2016-10-04] MEDS: ONDANSETRON ODT 4 MG TAB.RAPDIS SL PRN (14:44)
[2016-10-04] MEDS: CLONIDINE HCL 0.1 MG TABLET PO PRN (14:44)
--- NOTE | 2016-10-04 15:00 | NUR ---
PRN ADMINISTRATION RE-ASSESSMENT: PRN MEDICATIONS GIVEN WERE EFFECTIVE, PT IS RESTING IN BED WITHOUT COMPLAINTS OF PAIN OR DISCOMFORT OR ANY NAUSEA.
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
[2016-10-04 17:41] VITALS: BP 90/60; TEMP 98.2
--- NOTE | 2016-10-04 17:50 | NUR ---
1700 MEDICATIONS WERE HELD D/T PT HEAVILY SEDATED, PT VERBALIZES SHE IS HAVING A HARD TIME SITTING UP, BUT YET CONTINUES TO VERBALIZE WANTING SUBUTEX. PTS B/P AT THIS TIME IS 90/60. PLACED A CALL TO MD. ANDREA WITH ORDERS TO HOLD MEDICATIONS.
--- NOTE | 2016-10-04 19:40 | NUR ---
END OF SHIFT NOTE: PT IS ADMITTED TO [facility] FOR OPIATE/ETOH/BENZO WITHDRAWAL/DEPENDENCE. PT WAS TAKEN OFF 1:1 PT'S GAIT IS STILL UNSTEADY AT TIMES AFTER MEDICATION ADMINISTRATION. PT AT THIS TIME IS ABLE TO PERFORM ADLS AND IS ORIENTED AND AWAKE. PT AT TIMES APPEARS TO BE MED SEEKING. PTS LAST CIWA AND COWS WAS 1 D/T PT SLEEPING AND SEDATED. PT WITHOUT PAIN OR DISCOMFORT AT THIS TIME. WILL ENDORSE PT TO PHILOSOPHY LECTURER NURSE
[2016-10-04 20:00] VITALS: BP 110/74; TEMP 98.1
--- NOTE | 2016-10-04 20:00 | NUR ---
Start of Shift Pt is a 31 year old female admitted for Benzo/ETOH/opiate/meth dependence, placed on 5 day Valium and 5 day Subutex taper. PMH: Epilepsy, Fibromyalgia, Crohn's, PTSD and Panic DO with agoraphobia. NKA, regular diet (no pork), fall/seizure precautions - last seizure 07/2016 and full code. Upon assessment, pt is oriented/awake, reports feeling restless, abdominal cramping, skin is noted to be clammy/flushed, pt appears to have unsteady gait, however is able to perform ADLs. respirations even/unlabored, denies n/v/d, denies SOB/chest pain. Taper medications to be administered. Safety measures in place, call light within reach, side rails up x2, bed locked and in low position. Will continue to monitor.
--- NOTE | 2016-10-04 21:00 | NUR ---
Incision & Drainage Incision and Drainage performed on right extremity. Incision site, intact , packed and bandaged, pt tolerated well. Wound culture sent to lab. Will continue to monitor.
[2016-10-04] MEDS: QUETIAPINE FUMARATE 200 MG TABLET PO SCH (21:53)
[2016-10-04] MEDS: PRAZOSIN HCL 1 MG CAPSULE PO SCH (21:58)
[2016-10-05] VITALS: BP 91/56; TEMP 97.9
--- NOTE | 2016-10-05 | NUR ---
Vital Signs BP 91/56, pulse 76, SpO2 98%, respirations 16, temp 97.9, no pain 0/10 CIWA/COWS deferred d/t pt sleeping - to assess while pt is awake as ordered. Safety measures in place. Will continue to monitor.
[2016-10-05 04:00] VITALS: BP 88/58; TEMP 98.7
--- NOTE | 2016-10-05 04:00 | NUR ---
Vital Signs BP 88/58, pulse 67, respirations 12, SpO2 96%, temp 98.7, no pain 0/10 CIWA/COWS deferred d/t pt sleeping - to assess while pt is awake as ordered. Safety measures in place. Will continue to monitor.
[2016-10-05] MEDS: PANTOPRAZOLE SODIUM 40 MG TABLET.DR PO SCH (06:56)
--- NOTE | 2016-10-05 07:00 | NUR ---
End of Shift Pt is a 31 year old female admitted for Benzo/ETOH/opiate/meth dependence, placed on 5 day Valium and 5 day Subutex taper. PMH: Epilepsy, Fibromyalgia, Crohn's, PTSD and Panic DO with agoraphobia. NKA, regular diet (no pork), fall/seizure precautions - last seizure 07/2016 and full code. Pt is oriented/alert, during shift, pt reported feeling restless, reported abdominal cramping, skin was noted to be clammy/flushed. Pt noted to have unsteady gait, however is able to perform own ADLs. Scheduled taper medications administered, COWS 4 and CIWA 3. Incision and Drainage performed on right extremity, pt tolerated well. Site is clean, intact, packed/bandaged. Would coultures sent to lab - pending results. No PRN medications administered. Pt slept for 8 hours, intake of 1900 ml PO and voids x2. Safety measures in place, call light within reach, side rails up x2, bed locked and in low position. Endorsed to day shift nurse.
--- NOTE | 2016-10-05 07:10 | NUR ---
Start of Shift Report from the night nurse: pt is 31 y/o female here for Benzo r/t Xanax 10-20mg /d, Etoh r/t Vodka 500mL/d opiates r/t heroin IV 3-4g/d and methamphetamine 1g intermittently for 1 yr; Valium and Subutex tapers ordered. Pt is a full code, regular diet with no pork, NKA, fall and seizure precautions ordered. Hhx: Epilepsy, fibromyalgia, Crohn's disease, PTSD, Panic d/o with agoraphobia and multiple relapses and Right Arm abscess; specialist I/D, Surg and neurology is on her case. Skin is not intact with healing s/p I&D with pending orders in process for wound care dn abtx given for tx and endorsed to take picture of wound. Endorsed to me to closely monitor the pt for sedations and to prevent oversedation with notes to call MD if I hold the Valium, Subutex or phenobarbital. Endorsed tome to monitor pt's gait r/t medications and pt has slurred speech during her shift and the sitter order was cx'd per pt's request. V/S stable yet low with the last 88/55 HR 70's while asleep in bed at 0400am. Last COWS 4 CIWA 3. Pt is asleep in room. Will cont. to monitor the pt.
[2016-10-05 08:00] VITALS: BP 101/59; TEMP 98.2
[2016-10-05] MEDS ORDERED: BUPRENORPHINE HCL 2 MG TAB.SUBL SL SCH (09:00)
[2016-10-05] MEDS: FOLIC ACID 1 MG TABLET PO SCH (09:00)
[2016-10-05] MEDS: THIAMINE HCL 100 MG TABLET PO SCH (09:00)
[2016-10-05] MEDS: PROPRANOLOL HCL 10 MG TABLET PO SCH (09:00)
[2016-10-05] MEDS: LACTOBACILLUS RHAMNOSUS GG 1 EACH CAPSULE PO SCH (09:00)
[2016-10-05] MEDS: DIAZEPAM 5 MG TABLET PO SCH ×3 (09:00→21:00)
[2016-10-05] MEDS: GABAPENTIN 300 MG CAPSULE PO SCH ×4 (09:00→21:00)
[2016-10-05] MEDS ORDERED: DIAZEPAM 5 MG TABLET PO SCH (09:00)
[2016-10-05] MEDS: DICYCLOMINE HCL 20 MG TABLET PO SCH ×3 (09:00→21:00)
[2016-10-05] MEDS: MULTIVITAMINS,THERAPEUTIC TABLET PO SCH (09:00)
[2016-10-05] MEDS: BUPRENORPHINE HCL 2 MG TAB.SUBL SL SCH ×3 (09:00→21:00)
[2016-10-05] MEDS: HYDROXYZINE PAMOATE 25 MG CAPSULE PO SCH ×4 (09:00→21:00)
[2016-10-05] MEDS: LEVETIRACETAM 500 MG TABLET PO SCH ×2 (09:00→21:00)
[2016-10-05] MEDS: PHENOBARBITAL 60 MG TABLET PO SCH (09:00)
[2016-10-05] MEDS: SULFAMETH/TRIMETH 800/160 MG TABLET PO SCH (09:00)
[2016-10-05] MEDS: DULOXETINE 60 MG CAPSULE.DR PO SCH ×2 (09:00→17:12)
--- NOTE | 2016-10-05 09:00 | NUR ---
Medication Non-Administration Pt refused Vitamins: Folic, Thiamine, MV, and refused & Bentyl 20mg scheduled and Dr. Wise notified.
[2016-10-05] MEDS: QUETIAPINE FUMARATE 25 MG TABLET PO PRN (10:42)
[2016-10-05] MEDS ORDERED: BUPRENORPHINE HCL 2 MG TAB.SUBL SL ONE (10:45)
--- NOTE | 2016-10-05 10:45 | NUR ---
Late & PRN Medications Administration, Scanner Malfunction Medications given manually since scanner is malfunctioning and IT tech's notified for repair. I assessed pt's Full name, and ID # so scheduled medications given late since pt woke up late. Pt c/o muscle tension r/t fibromyalgia; PRN Baclofen 20mg & Seroquel 25mg given for pt's internationalization, anxiety and severe irritability with pacing and stomping.
[2016-10-05] MEDS: KETOROLAC TROMETHAMINE 30 MG INJ IM PRN ×2 (11:14→17:24)
--- NOTE | 2016-10-05 11:17 | NUR ---
PRN Medication Administration & Subutex-ONCE, Scanner Malfunctioned Assessed pt's full name, , and ID#. Pt is in room pacing, anxious, pouring water on areas & repeatedly cleaning counters, getting on her knees & cleaning the floor while crying and still c/o pain on right FA s/p incision site for I/D with un-stageable, HR 125 with BP still stable at 111/66, PERRLA 4mm COWS 19; PRN Toradol 30mg IM given as ordered and Subutex 2mg SL ONCE given as ordered. Will reassess in 1H.
[2016-10-05 12:00] VITALS: BP 77/44; TEMP 97.9
--- NOTE | 2016-10-05 12:12 | NUR ---
Seizures Pt is A&O x 4 in patio and ambulating back to room after smoking with group and techs and started to have severe tremors so2 techs assisted the pt to the ground with assistance while protecting the pt's head for safety. I assessed the pt while she was on the ground and she is awake, alert, and oriented with skin intact on BUE's and BLE's, no head trauma on scalp, PERRLA 4mm, no N/V noted. Pt taken back to room via w/c and assisted to bed with seizure precautions carried out; new orders for room restriction with sitter 1:1 for safety precautions. While pt in w/c pt had recurrent tremors generalized lasting for 15 seconds. Pt was then transferred into bed with HOB semi-fowlers, afebrile, RR 14, SpO2 98% RA, low BP 77/44 left arm and reassessed 83/39 on right arm,HR 99-102 & 0/10 pain and pt then had another recurrent episode of generalized tremors lasting 30seconds; notified Dr. Wise and new orders for NS bolus 1 Liter. Will cont. to monitor the pt.
[2016-10-05] MEDS ORDERED: IV NS 1000 ML 1,000 ML IV ONE (13:00)
--- NOTE | 2016-10-05 13:00 | NUR ---
Reassessment, Low Hgb, New Orders Pt is in room asleep in bed, no seizure, no tremors and no respiratory depression, no pain, no anxiety, irritably or psychotic episodes noted COWS 1 with HR 93 CIWA 0 r/t sleep; PRN Toradol, Subutex and Seroquel are effective. Safety & seizure precautions carried out as ordered with sitter present. New orders for modified Keppra dose starting at 2100p, labs CBC, CMP, OB x1 obtained and turned into lab, liver panel, prolactin and to given IVF NS bolus 1L x1 and NS 125cc/H to tx hypotension. Decreased Hgb 8.1 with new results from today so notified Dr. Wise, RADHA and DON and no new orders at this time.
[2016-10-05] MEDS ORDERED: MAGNESIUM OXIDE 400 MG TABLET PO ONE (14:15)
[2016-10-05] MEDS ORDERED: IV NS 1000 ML 1,000 ML IV PRN (15:00)
[2016-10-05] MEDS ORDERED: PHENOBARBITAL 60 MG TABLET PO SCH (15:00)
--- NOTE | 2016-10-05 15:30 | NUR ---
PRN Medication Administration, New Orders, Medication Non-Administration Pt in bathroom vomiting lunch eaten after waking up from nap; PRN Zofran 4mg SL given as ordered. New orders for Swallow Eval, EEG, Upper gi XR with gasatrograffin, EKG, modified phenobarbital increased for seizure prevention, and labs for 10/06/16: Chem 22, Folic, T4, HCV reflex, TSH. Pt refused Bentyl 20mg ordered at 1700H. Will reassess in 30minutes.
[2016-10-05] MEDS: ONDANSETRON ODT 4 MG TAB.RAPDIS SL PRN (15:56)
[2016-10-05] MEDS: PHENOBARBITAL 32.4 MG TABLET PO SCH ×2 (15:56→21:00)
[2016-10-05 16:00] VITALS: BP 96/63; TEMP 98.3
--- NOTE | 2016-10-05 16:00 | NUR ---
Reassessment No N/V present, and pt denies nausea while eating and drinking fluids; Zofran is effective.
--- NOTE | 2016-10-05 19:36 | NUR ---
End of Shift Report to the night nurse: pt is 31 y/o female here for Benzo r/t Xanax 10-20mg /d, Etoh r/t Vodka 500mL/d opiates r/t heroin IV 3-4g/d and methamphetamine 1g intermittently for 1 yr; Valium and Subutex tapers ordered. Pt is a full code, regular diet with no pork, NKA, fall and seizure precautions ordered. Hhx: Epilepsy, fibromyalgia, Crohn's disease, PTSD, Panic d/o with agoraphobia and multiple relapses and Right Arm abscess; specialist I/D, Surg and neurology is on her case. Skin is not intact with healing s/p I&D. Pt had manic episode and seizures with tremors during my shift and new orders for modified phenobarbital and keppra given by Dr. Wise. PRN Zofran given for N/V and was effective. New orders fo EEG, EKG, swallow eval, and XR fo upper GI so endorsed to night nurse to f/u with labs and results. Ne orders for blood draw labs tomorrow. PRN Baclofen given with Seroquel 25mg for manic episode and endorse to night nurse to give it PRN per Dr. Wise. ONCE time order for Subutex given with new order for Toradol for Right Arm pain with last dose given at 1730. Recommended to night nurse to monitor the pt for sedations and to prevent oversedation with notes to call MD if I hold the Valium, Subutex or phenobarbital with documented orders attached to SBAR. V/S stable yet low with the last 96/63 HR 125bpm during my shift and new orders for IV Bolus yet the pt is VERY UNCOOPERATIVE with care. New order for sitter present. . Last COWS 8 CIWA11.
--- NOTE | 2016-10-05 19:37 | NUR ---
Start of shift note Received report from day shift nurse. Pt is a 31 yo female, A+Ox4, presenting to [facility] for Benzo/ETOH/Opiate/Meth dependence. Pt has NKA, is Full code status, and on Regular diet. Pt has HX of Epilepsy, Fibromyalgia, Crohn's disease, PTSD, panic disorder, and eating disorder. Pt is on fall and Seizure precautions. Pt is on 1:1 sitter for Seizures. Pt is on 5 day Valium and Subutex tapers, tolerated well. No s/s of distress noted at this time. Respirations even and unlabored. Will continue to monitor.
[2016-10-05 20:11] VITALS: BP 79/48; TEMP 98
[2016-10-05] MEDS: QUETIAPINE FUMARATE 200 MG TABLET PO SCH (21:00)
[2016-10-05] MEDS: PRAZOSIN HCL 1 MG CAPSULE PO SCH (21:00)
[2016-10-06 00:16] VITALS: BP 100/71; TEMP 97.5
[2016-10-06 04:22] VITALS: BP 97/64; TEMP 98.1
[2016-10-06] MEDS: CLONIDINE HCL 0.1 MG TABLET PO PRN (05:37)
--- NOTE | 2016-10-06 05:37 | NUR ---
PRN Clonidine and Toradol Pt c/o Right wrist pain 9/10 and Anxiety and requested for PRN Clonidine and Toradol. Medications given and tolerated well. Will reassess within 1 HR.
[2016-10-06] MEDS: KETOROLAC TROMETHAMINE 30 MG INJ IM PRN ×2 (05:39→15:22)
--- NOTE | 2016-10-06 06:30 | NUR ---
PRN Clonidine and Toradol Reassessment Medications effective. Pain level now 5/10 and shows reduction in Anxiety. No s/s of ASE/distress noted at this time. Respirations even and unlabored. Will continue to monitor.
--- NOTE | 2016-10-06 07:01 | NUR ---
End of shift note Pt is a 31 yo female, A+Ox4, presenting to [facility] for Benzo/ETOH/Opiate/Meth dependence. Pt has NKA, is Full code status, and on Regular diet. Pt has HX of Epilepsy, Fibromyalgia, Crohn's disease, PTSD, panic disorder, and eating disorder. Pt is on fall and Seizure precautions. Pt is on 1:1 sitter for Seizures/safety. Pt is on 5 day Valium and Subutex tapers, tolerated well. Pt slept for a total of 10 HRS. Last COWS: 1 and Last CIWA: 1. No s/s of distress noted at this time. Respirations even and unlabored. Will endorse to day shift nurse.
[2016-10-06] MEDS: PANTOPRAZOLE SODIUM 40 MG TABLET.DR PO SCH (07:07)
[2016-10-06 08:00] VITALS: BP 96/60; TEMP 98.6
[2016-10-06] MEDS: MULTIVITAMINS,THERAPEUTIC TABLET PO SCH ×2 (09:00→09:23)
[2016-10-06] MEDS: FOLIC ACID 1 MG TABLET PO SCH ×2 (09:00→09:22)
[2016-10-06] MEDS: LEVETIRACETAM 500 MG TABLET PO SCH ×2 (09:21→22:53)
[2016-10-06] MEDS: HYDROXYZINE PAMOATE 25 MG CAPSULE PO SCH ×4 (09:21→22:59)
[2016-10-06] MEDS: DULOXETINE 60 MG CAPSULE.DR PO SCH ×2 (09:21→17:00)
[2016-10-06] MEDS: BACLOFEN 20 MG TABLET PO PRN (09:21)
[2016-10-06] MEDS: PHENOBARBITAL 32.4 MG TABLET PO SCH ×3 (09:22→22:56)
[2016-10-06] MEDS: DIAZEPAM 5 MG TABLET PO SCH ×2 (09:22→22:52)
[2016-10-06] MEDS: GABAPENTIN 300 MG CAPSULE PO SCH ×4 (09:22→23:00)
[2016-10-06] MEDS: THIAMINE HCL 100 MG TABLET PO SCH (09:22)
[2016-10-06] MEDS: DICYCLOMINE HCL 20 MG TABLET PO SCH ×3 (09:22→22:57)
[2016-10-06] MEDS: BUPRENORPHINE HCL 2 MG TAB.SUBL SL SCH ×2 (09:23→23:02)
[2016-10-06] MEDS ORDERED: MAGNESIUM OXIDE 400 MG TABLET PO ONE (09:45)
--- NOTE | 2016-10-06 10:00 | NUR ---
START OF SHIFT Received report from marking room supervisor nurse. Patient is 31 year old female admitted for medically supervised withdrawal from alcohol, alprazolam, and heroin. Patient is full code, NKA. Patient agitated and requesting to speak to her doctor about going out for smoke break before 9am. On assessment this AM: CIWA: 8 and COWS: 11. Patient reports anxiety, tremors, headache, vomiting. Denies SOB, chest pain, sweating, any hallucinations. Recent VS: 96/60, HR 82, R18, T98.6, 0/10 pain and 99% 02 sat room air. Patient ate her breakfast but vomited afterwards. On 5 Day Valium and Subutex taper. PRN baclofen given. She received all her AM meds. Patient initially refused to have EEG done and wanted to speak to MD first before the procedure. Patient agreed to have the procedure after speaking to the MD. Patient was encouraged to attend group meetings today. Will continue to monitor patient.
[2016-10-06] MEDS ORDERED: PHENOBARBITAL 32.4 MG TABLET PO ONE (10:30)
[2016-10-06] MEDS: NICOTINE 14 MG/24HR PATCH TD SCH (10:30)
[2016-10-06] MEDS ORDERED: NICOTINE POLACRILEX 4 MG GUM-PK OF TEN BC PRN (10:30)
[2016-10-06 12:00] VITALS: BP 98/68; TEMP 98.6
[2016-10-06] MEDS: MAG HYDROX/AL HYDROX/SIMETH 30 ML LIQUID UDC PO PRN (13:42)
--- NOTE | 2016-10-06 13:42 | NUR ---
PRN MAALOX PRN Maalox administered as ordered, pt is complaining of heartburn.
--- NOTE | 2016-10-06 14:22 | NUR ---
REASSESSMENT KETOROLAC INJECTION (DEFERRED) Patient has been asleep at this time. Patient is not in distress.
--- NOTE | 2016-10-06 14:42 | NUR ---
REASSESSMENT Patient reports maalox was effective.
[2016-10-06] MEDS: BACLOFEN 20 MG TABLET PO SCH ×2 (15:21→22:56)
--- NOTE | 2016-10-06 15:22 | NUR ---
PRN KETOROLAC INJECTION Patient c/o pain 10/10 headache and body ache. PRN ketorolac injection given. will continue to monitor patient.
--- NOTE | 2016-10-06 18:49 | NUR ---
END OF SHIFT Patient is 31 year old female admitted for medically supervised withdrawal from alcohol, alprazolam, and heroin. Patient is full code, NKA. Patient agitated requesting for her toradol for pain. PRN Toradol injection given. Most recent CIWA: 8 and COWS: 8. Patient reports anxiety, agitation noted as well, tremors, headache, body aches. Remains on 1:1 sitter for seizure precaution, no seizure activity noted this shift. Wound assessment done and dressing changed RFA wounds (s/p I&D). Swelling noted but no bleeding or dranaige noted, photo taken. Reminded patient not to scratch to prevent infection.
--- NOTE | 2016-10-06 19:30 | NUR ---
START OF SHIFT NOTE : Patient is 31 year old female admitted for medically supervised withdrawal from alcohol, alprazolam, and heroin. Patient is full code, NKA. Remains on 1:1 sitter for seizure precaution, no seizure activity noted. Pt. is sleeping, she was oriented to her name only, reoriented to time and location .Wound assessment done and dressing changed RFA wounds (s/p I&D). Swelling noted but no bleeding or dranaige noted, photo taken. Reminded patient not to scratch to prevent infection. Safety measures in place : bed on lowest position with side rails x2 up for safety, call light within reach. Will continue to monitor closely and offer help.
[2016-10-06 20:00] VITALS: BP 126/82; TEMP 98.1
[2016-10-06] MEDS: PRAZOSIN HCL 1 MG CAPSULE PO SCH (21:00)
[2016-10-06] MEDS: QUETIAPINE FUMARATE 200 MG TABLET PO SCH (22:53)
[2016-10-07] VITALS: BP 111/71; TEMP 98.1
--- NOTE | 2016-10-07 06:55 | NUR ---
END OF SHIFT NOTE : Patient is 31 year old female admitted for medically supervised withdrawal from alcohol, alprazolam, and heroin. Patient is full code, NKA. Remains on 1:1 sitter for seizure precaution, no seizure activity noted.Wound assessment done and dressing changed RFA wounds (s/p I&D). Swelling noted but no bleeding or dranaige noted, photo taken. Reminded patient not to scratch to prevent infection. Pt. used the wheelchair when going downstairs to smoke, she ate her dinner and ambulated to the kitchen for beverages. Spo2=88% after 04:00, O2 3l/min via NC given m Spo2=93%. BP=90/60 , HR=89/min. Pt. is arousable to touch, oriented to her name only. MID line service contracted by phone, message left ( endorsed to day shift nurse to follow up ). RR=16, even and unlabored, lungs clear upon auscultation, abdomen soft and non- distended. Pt denies nausea, vomiting and diarrhea. LAST CIWA= 8 ,COWS=8 at 0600 , WQPIDH=904 ml, voided x 1, slept 10 hours. Safety measures in place : bed on lowest position with side rails x2 up for safety, call light within reach. Will continue to monitor closely and offer help.
[2016-10-07 07:17] VITALS: BP 97/58; TEMP 98.2
[2016-10-07 08:00] VITALS: BP 102/64; TEMP 98.2
--- NOTE | 2016-10-07 08:00 | NUR ---
START OF SHIFT Pt 31 y/o female admitted for BZO/ ETOH/ opiate dependence. Pt received in room with eyes closed resting, but arousable to name. Pt did not want to be assessed at this time. Respirations even and unlabored. Pt with sitter at arm's length from pt, to monitor for sz and safety. It was reported that pt slept for 8 hours last night. Bed on lowest position with side rails x2 up for safety. Call light within reach. No distress noted at this time.
[2016-10-07] MEDS: FOLIC ACID 1 MG TABLET PO SCH (09:00)
[2016-10-07] MEDS: DICYCLOMINE HCL 20 MG TABLET PO SCH ×3 (09:00→21:42)
[2016-10-07] MEDS: BACLOFEN 20 MG TABLET PO SCH ×3 (09:00→21:42)
[2016-10-07] MEDS: PHENOBARBITAL 32.4 MG TABLET PO SCH (09:00)
[2016-10-07] MEDS ORDERED: BUPRENORPHINE HCL 2 MG TAB.SUBL SL SCH (09:00)
[2016-10-07] MEDS ORDERED: DIAZEPAM 5 MG TABLET PO SCH (09:00)
[2016-10-07] MEDS: MULTIVITAMINS,THERAPEUTIC TABLET PO SCH (09:00)
--- NOTE | 2016-10-07 10:00 | NUR ---
SELECT MEDICATIONS HELD Pt was seen by Dr. Wise. Pt appears sedated, slurring speech, not able hold a cup. Schedule medications: baclofen , phenobarb, valium, and subutex was held this morning and clarified with Dr. Wise.
[2016-10-07] MEDS: THIAMINE HCL 100 MG TABLET PO SCH (10:34)
[2016-10-07] MEDS: DULOXETINE 60 MG CAPSULE.DR PO SCH ×2 (10:35→16:07)
[2016-10-07] MEDS: LEVETIRACETAM 500 MG TABLET PO SCH ×2 (10:35→21:43)
[2016-10-07] MEDS: HYDROXYZINE PAMOATE 25 MG CAPSULE PO SCH ×4 (10:35→21:42)
[2016-10-07] MEDS: PANTOPRAZOLE SODIUM 40 MG TABLET.DR PO SCH (10:35)
[2016-10-07] MEDS: GABAPENTIN 300 MG CAPSULE PO SCH ×4 (10:35→21:42)
[2016-10-07] MEDS: NICOTINE 14 MG/24HR PATCH TD SCH (10:36)
[2016-10-07 12:00] VITALS: BP 104/74; TEMP 98.2
[2016-10-07 16:00] VITALS: BP 110/82; TEMP 98.2
[2016-10-07] MEDS: CLONIDINE HCL 0.1 MG TABLET PO PRN (16:10)
--- NOTE | 2016-10-07 16:10 | NUR ---
PRN Pt stated has body aches 11/29. Toradol IM prn per MD order given and tolerated well.
--- NOTE | 2016-10-07 16:10 | NUR ---
prn Pt states she feels anxious. Pt appears restless, fidgety, not able to sit still.
[2016-10-07] MEDS: KETOROLAC TROMETHAMINE 30 MG INJ IM PRN (16:11)
[2016-10-07] MEDS ORDERED: SEROQUEL200 MG PO (18:40)
[2016-10-07] MEDS ORDERED: KEPPRA500 MG PO (18:40)
[2016-10-07] MEDS ORDERED: CATAPRES0.1 MG PO (18:40)
[2016-10-07] MEDS ORDERED: SEROQUEL25 MG PO (18:40)
[2016-10-07] MEDS ORDERED: MINIPRESS1 MG PO (18:40)
[2016-10-07] MEDS ORDERED: Gabapentin PO (18:40)
[2016-10-07] MEDS ORDERED: PHENOBARBITAL60 MG PO (18:40)
[2016-10-07] MEDS ORDERED: Ibuprofen PO (18:40)
[2016-10-07] MEDS ORDERED: BENTYL20 M1 PO (18:40)
[2016-10-07] MEDS ORDERED: Baclofen PO (18:40)
[2016-10-07] MEDS ORDERED: VITAMIN C W/RO250 MG PO (19:08)
[2016-10-07] MEDS ORDERED: HYDROXYZINE PAM25 M1 PO (19:08)
[2016-10-07] MEDS ORDERED: FEOSOL325 MG PO (19:08)
[2016-10-07] MEDS ORDERED: MVI PO (19:10)
--- NOTE | 2016-10-07 19:30 | NUR ---
Start of Shift Note: Patient is a 31 y/o female admitted on 09/30/16 for Opiate, Benzo and ETOH dependence. Patient reported using Xanax 10-20mg daily, Heroin IV 3-4gms daily & drinks 500ml of Vodka daily for 1 year. Patient medical history of Epilepsy, Fibromyalgia, Crohn's disease, PTSD, Panic d/o with agoraphobia & Eating disorder. Patient is on a regular diet with no known arin d and drug allergies. Full Code status. Patient completed her Valium & Subutex taper and is scheduled to be discharge tomorrow. Urine drug screen collected and resulted. Patient is on 1:1 for safety precautions. Patient has right arm open wound post I&D. Dressing clean, dry & intact. Patient remained stable. Last COWS 6 CIWA 4. Pt was given PRN Toradol & Clonidine during day shift. Patient is alert & oriented x4. no shortness of breath noted. Respiration even & unlabored. Abdomen soft & non-distended. Nausea noted. Patient complains of sweating, chills. Pt verbalized 9/10 body aches and headache. Bilateral hand tremors noted. Patient denies hallucinations. Safety precautions are in place. bed locked in lowest position. Both side rails up. Call light within pt's reach. Will continue to monitor patient. Addendum: 10/07/16 at 2317 by GLORIA AVALOS RN Pt complains of a mild headache
--- NOTE | 2016-10-07 19:47 | NUR ---
END OF SHIFT Pt 31 y/o female admitted for BZO/ ETOH/ opiate dependence. Pt did not want to be assessed at this time. Respirations even and unlabored. Pt with sitter at arm's length from pt, to monitor for sz and safety. Pt observed mostly in room this morning. Pt with episodes anxiety this afternoon. Pt with sitter for safety. Pt medication compliant and tolerated well. No aSe noted. Pt was seen by Dr. Wise today. Bed on lowest position with side rails x2 up for safety. Call light within reach. No distress noted at this time.
[2016-10-07 20:00] VITALS: BP 107/78; TEMP 97.3
[2016-10-07] MEDS: ASCORBIC ACID 250 MG TABLET PO SCH (21:42)
[2016-10-07] MEDS: FERROUS SULFATE 325 MG TABEC PO SCH (21:42)
[2016-10-07] MEDS: PRAZOSIN HCL 1 MG CAPSULE PO SCH (21:43)
[2016-10-07] MEDS: PHENOBARBITAL 60 MG TABLET PO SCH (21:43)
[2016-10-07] MEDS: IBUPROFEN 600 MG TABLET PO PRN (21:43)
[2016-10-07] MEDS: ONDANSETRON 4 MG/2 ML VIAL IM PRN (21:44)
--- NOTE | 2016-10-07 21:44 | NUR ---
PRN Administration Patient complains of mild headache & nausea. Pt noted with 1 episode of vomiting. PRN Motrin & Zofran IM administered as ordered. Will reassess in 1 hour. Will continue to monitor.
[2016-10-07] MEDS: QUETIAPINE FUMARATE 200 MG TABLET PO SCH (21:52)
--- NOTE | 2016-10-07 22:44 | NUR ---
PRN Reassessment Patient verbalized relief from headache and improved nausea. No episode of vomiting noted after medication was given. Will continue to monitor patient.
[2016-10-08] VITALS: BP 85/41; TEMP 97.6
[2016-10-08 04:00] VITALS: BP 98/51; TEMP 98.2
--- NOTE | 2016-10-08 07:04 | NUR ---
End of Shift Note: Patient is a 31 y/o female admitted on 09/30/16 for Opiate, Benzo and ETOH dependence. Patient has medical history of Epilepsy, Fibromyalgia, Crohn's disease, PTSD, Panic d/o with agoraphobia & Eating disorder. Patient is on a regular diet with no known food and drug allergies. Full Code status. Patient completed her Valium & Subutex taper and is scheduled to be discharge today. Urine drug screen collected and resulted. Patient remains on 1:1 for safety. Patient has right arm open wound post I&D. Dressing clean, dry & intact. Patient remained stable. Last COWS 2 CIWA 2. Pt was given PRN Zofran IM for nausea & Motrin for headache last night. Pt remained stable. Pt slept for a total of 7 hours. Pt consumed 651ml of fluids. Voided 1x with no bowel movement. All needs attended & met. Safety precautions are in place. Bed locked in lowest position. Both side rails up. Call light within pts reach. Will endorse pt to day shift nurse.
[2016-10-08] MEDS: PANTOPRAZOLE SODIUM 40 MG TABLET.DR PO SCH (07:08)
--- NOTE | 2016-10-08 07:30 | NUR ---
Start of shift note; received report from night nurse. Patient is a 31 year old female admitted on 09/30/16 for Benzo, ETOH,Opiate dependence. Patient completed Valium and Subutex taper. Patient reported history of epilepsy, fibromyalgia, Crohn's disease, PTSD, panic disorder, eating disorder, panic disorder. Patient is on 1:1 supervision for safety. Patient is on fall and seizure precaution, bed in lowest position, call light within reach. Patient is scheduled for discharge today, pending location and time. Will closely monitor patient.
[2016-10-08 08:00] VITALS: BP 108/64; TEMP 98.2
[2016-10-08] MEDS: FOLIC ACID 1 MG TABLET PO SCH (08:18)
[2016-10-08] MEDS: HYDROXYZINE PAMOATE 25 MG CAPSULE PO SCH ×4 (08:18→21:04)
[2016-10-08] MEDS: ASCORBIC ACID 250 MG TABLET PO SCH ×2 (08:18→21:05)
[2016-10-08] MEDS: DICYCLOMINE HCL 20 MG TABLET PO SCH ×3 (08:18→21:05)
[2016-10-08] MEDS: MULTIVITAMINS,THERAPEUTIC TABLET PO SCH (08:18)
[2016-10-08] MEDS: GABAPENTIN 300 MG CAPSULE PO SCH ×4 (08:18→21:05)
[2016-10-08] MEDS: LEVETIRACETAM 500 MG TABLET PO SCH ×2 (08:19→21:05)
[2016-10-08] MEDS: PHENOBARBITAL 60 MG TABLET PO SCH ×4 (08:19→21:06)
[2016-10-08] MEDS: DULOXETINE 60 MG CAPSULE.DR PO SCH ×2 (08:19→17:12)
[2016-10-08] MEDS: BACLOFEN 20 MG TABLET PO SCH ×3 (08:19→21:04)
[2016-10-08] MEDS: FERROUS SULFATE 325 MG TABEC PO SCH ×2 (08:19→21:05)
[2016-10-08] MEDS: THIAMINE HCL 100 MG TABLET PO SCH (08:19)
[2016-10-08] MEDS: NICOTINE 14 MG/24HR PATCH TD SCH (08:27)
[2016-10-08 12:00] VITALS: BP 103/63; TEMP 99.2
[2016-10-08] MEDS: KETOROLAC TROMETHAMINE 30 MG INJ IM PRN (12:28)
[2016-10-08] MEDS: CLONIDINE HCL 0.1 MG TABLET PO PRN ×2 (12:28→18:40)
--- NOTE | 2016-10-08 12:28 | NUR ---
PRN medication; Patient is complaining of generalized pain d/t her fibromyalgia, patient also noted to be agitated, patient pacing back and forth in the room, redirected as needed. PRN Toradol 30mg IM given to left buttocks area, and clonidine 0.1mg PO given for agitation M/B increase HR 113. Will closely monitor patient.
--- NOTE | 2016-10-08 13:28 | NUR ---
Re-assessment; Patient states that Toradol injection was effective, patient denies pain at this time,no agitation noted. PRN medications are effective.
--- NOTE | 2016-10-08 15:00 | NUR ---
Medication non-administration; New order noted, Patient decreased Phenobarbital to 60mg, new order non-administered due to Phenobarbital 90mg already administered prior to new order. MD was notified. Patient is scheduled for discharge tomorrow. Will continue to monitor patient. Addendum: 10/08/16 at 1620 by CARLOS DUENAS LVN Clarification; Patient's medication was decreased to 60mg (Phenobarbital). Patient's discharge date is still pending per learning services coordinator.
[2016-10-08] MEDS ORDERED: QUETIAPINE FUMARATE 25 MG TABLET PO PRN (15:45)
[2016-10-08 16:00] VITALS: BP 113/70; TEMP 98.1
[2016-10-08] MEDS ORDERED: NICOTINE POLACRILEX 4 MG GUM-PK OF TEN BC PRN (17:00)
[2016-10-08] MEDS ORDERED: NICOTINE 14 MG/24HR PATCH TD SCH (17:00)
[2016-10-08] MEDS: NICOTINE 21 MG/24HR PATCH TD SCH (17:30)
--- NOTE | 2016-10-08 17:30 | NUR ---
MD communication Per Dr Wise, pt placed on unit restriction and is not allowed to go off the unit unless medically necessary d/t high risk for seizures d/t tapering of phenobarbital and pt medical history. Pt educated and verbalized her understanding. Dr Smith ordered nicotine patch 21mg TD and nicotine gum 4mg PO Q2H PRN nicotine craving. Orders entered, MD unable to enter orders. Pt stated she agreed with current plan of care. Pt continues on 1:1 sitter for safety.
--- NOTE | 2016-10-08 18:42 | NUR ---
PRN medication; Patient noted to be agitated M/B patient pacing back and forth in the room with HR of 107, redirected patient as needed. PRN Clonidine 0.1mg PO given for agitation as per ordered. Will continue to monitor patient.
--- NOTE | 2016-10-08 18:45 | NUR ---
End of shift note; Patient is AOX4. Patient is a 31 year old female admitted on 09/30/16 for Benzo, ETOH,Opiate dependence. Patient completed Valium and Subutex taper. Patient reported history of epilepsy, fibromyalgia, Crohn's disease, PTSD, panic disorder, eating disorder, panic disorder. Patient is on 1:1 supervision for safety. Patient is on fall and seizure precaution, bed in lowest position, call light within reach. Patient's discharge date was extended, patient to start Phenobarbital taper. MD educated patient regarding treatment plan. Patient was placed on room restrictions, no patio privileges for safety and seizure precautions. Patient remained complaint with treatment plan. All safety measures secured. Met all needs.
--- NOTE | 2016-10-08 19:15 | NUR ---
Start of Shift Note: Patient is a 31 y/o female admitted on 09/30/16 for Opiate, Benzo and ETOH dependence. Patient reported using Xanax 10-20mg daily, Heroin IV 3-4gms daily & drinks 500ml of Vodka daily for 1 year. Patient medical history of Epilepsy, Fibromyalgia, Crohn's disease, PTSD, Panic d/o with agoraphobia & Eating disorder. Patient is on a regular diet with no known food and drug allergies. Full Code status. Patient completed her Valium & Subutex taper. Patients discharge was extended and Patient was placed on a Phenobarbital taper. Patient is on 1:1 observation for safety. Patient has right arm open wound post I&D. Dressing clean, dry & intact. Patient remained stable. Last COWS 2 CIWA 1. Pt was given PRN Toradol & Clonidine x2 during day shift. Patient is alert & oriented x4. no shortness of breath noted. Respiration even & unlabored. Abdomen soft & non-distended. Nausea noted. No hand tremors noted. Patient denies hallucinations. Safety precautions are in place. bed locked in lowest position. Both side rails up. Call light within pt's reach. Will continue to monitor patient. Addendum: 10/09/16 at 0007 by GLORIA AVALOS RN Patient is under Unit restriciton per MD order.
[2016-10-08 20:00] VITALS: BP 106/75; TEMP 97.4
[2016-10-08] MEDS: QUETIAPINE FUMARATE 200 MG TABLET PO SCH (21:06)
[2016-10-08] MEDS: PRAZOSIN HCL 1 MG CAPSULE PO SCH (21:14)
[2016-10-08] MEDS: NICOTINE POLACRILEX 4 MG GUM-PK OF TEN BC PRN (22:46)
[2016-10-08] MEDS: ONDANSETRON 4 MG/2 ML VIAL IM PRN (22:47)
--- NOTE | 2016-10-08 22:47 | NUR ---
PRN Zofran Patient complains of nausea with no episode of vomiting noted. PRN Zofran IM administered as ordered. Will reassess in 1 hour. Will continue to monitor patient.
--- NOTE | 2016-10-08 23:47 | NUR ---
PRN Reassessment Patient asleep at this time. No episode of vomiting noted. Patient appears comfortable with no s/s of distress noted. Safety precautions are in place. Will continue to monitor patient.
[2016-10-09] VITALS (7 sets, daily range): BP systolic 78–112; BP diastolic 46–91; TEMP 97.1–98.1
[2016-10-09] MEDS: PANTOPRAZOLE SODIUM 40 MG TABLET.DR PO SCH (06:29)
[2016-10-09] MEDS: KETOROLAC TROMETHAMINE 30 MG INJ IM PRN ×2 (06:56→14:27)
--- NOTE | 2016-10-09 06:56 | NUR ---
PRN Toradol Patient complains of 8/10 pain on her right arm wound. Patient noted to be restless with facial grimacing. PRN Toradol IM administered as ordered. Will continue to monitor patient.
--- NOTE | 2016-10-09 07:24 | NUR ---
End of Shift Note: Patient is a 31 y/o female admitted on 09/30/16 for Opiate, Benzo and ETOH dependence. Patient reported using Xanax 10-20mg daily, Heroin IV 3-4gms daily & drinks 500ml of Vodka daily for 1 year. Patient medical history of Epilepsy, Fibromyalgia, Crohn's disease, PTSD, Panic d/o with agoraphobia & Eating disorder. Patient is on a regular diet with no known food and drug allergies. Full Code status. Patient completed her Valium & Subutex taper. Patients discharge was extended and Patient was placed on a Phenobarbital taper. Patient is on 1:1 observation for safety. Patient is on Unit restriction per MD order. Patient has right arm open wound post I&D. Dressing clean, dry & intact. Patient also noted with non-pitting edema on both lower extremities. Last COWS 2 CIWA 2. Pt was given PRN Zofran IM & Toradol during my shift and were effective. Patient remains stable. Patient is awake at this time. No s/s of distress noted. No shortness of breath noted. Vitals WNL. Pt complains of sore throat upon waking up and noted with productive cough. Pt slept for a total of 8 hours. Pt consumed 710ml of fluids. Voided 1x with no bowel movement. All needs attended & met. Safety precautions are in place. Will endorse pt to day shift nurse.
--- NOTE | 2016-10-09 07:25 | NUR ---
Start Of Shift Patient Received from manager urology nurse. Patient is a 31 y/o female admitted on 09/30/16 for Opiate, Benzo and ETOH dependence. Pt is full code regular diet on fall and seizure precautions denies any food or drug allergies. Patient medical history of Epilepsy, Fibromyalgia, Crohn's disease, PTSD, Panic d/o with agoraphobia & Eating disorder. Patient completed her Valium & Subutex taper. Patients discharge was extended and Patient was placed on a 5 day Phenobarbital taper. Patient is on 1:1 observation for safety. Patient is on Unit restriction per MD order. Patient has right arm open wound post I&D. Dressing clean, dry & intact. Patient also noted with non-pitting edema on both lower extremities MD notified. Last COWS 2 CIWA 2. Pt was given PRN Zofran IM & Toradol during manager urology which was effective per manager urology nurse. Pt slept for a total of 8 hours.
[2016-10-09] MEDS: HYDROXYZINE PAMOATE 25 MG CAPSULE PO SCH ×4 (09:44→20:32)
[2016-10-09] MEDS: DULOXETINE 60 MG CAPSULE.DR PO SCH ×2 (09:45→16:41)
[2016-10-09] MEDS: BACLOFEN 20 MG TABLET PO SCH ×3 (09:45→20:29)
[2016-10-09] MEDS: LEVETIRACETAM 500 MG TABLET PO SCH ×2 (09:45→20:27)
[2016-10-09] MEDS: GABAPENTIN 300 MG CAPSULE PO SCH ×4 (09:45→20:26)
[2016-10-09] MEDS: ASCORBIC ACID 250 MG TABLET PO SCH ×2 (09:45→20:28)
[2016-10-09] MEDS: MULTIVITAMINS,THERAPEUTIC TABLET PO SCH (09:46)
[2016-10-09] MEDS: THIAMINE HCL 100 MG TABLET PO SCH (09:46)
[2016-10-09] MEDS: FERROUS SULFATE 325 MG TABEC PO SCH ×2 (09:46→20:28)
[2016-10-09] MEDS: FOLIC ACID 1 MG TABLET PO SCH (09:46)
[2016-10-09] MEDS: DICYCLOMINE HCL 20 MG TABLET PO SCH ×3 (09:46→20:37)
[2016-10-09] MEDS: PHENOBARBITAL 60 MG TABLET PO SCH ×4 (09:46→20:32)
[2016-10-09] MEDS: NICOTINE 21 MG/24HR PATCH TD SCH (09:46)
[2016-10-09] MEDS: CLONIDINE HCL 0.1 MG TABLET PO PRN (12:22)
--- NOTE | 2016-10-09 12:22 | NUR ---
PRN CLONIDINE ADMINISTRATION: PT NOTED TO BE SHAKY,SWEATING AND VERBALIZED SHE IS ANXIOUS AND HAVING THE CHILLS. WILL MONITOR IF MEDICATION IS EFFECTIVE
--- NOTE | 2016-10-09 13:15 | NUR ---
PRN RE-ASSESSMENT: pt states the medication is not effective, but is nodding off and is not in any discomfort
--- NOTE | 2016-10-09 14:30 | NUR ---
PRN TORADOL AND 4 MG OF NICOTINE GUM WAS ADMINISTRATED: PT STATED SHE IS IN A LOT OF PAIN /10 WAS VERBALIZED PT STATES ITS A BURNING FEELING THROUGHOUT HER BODY AND STARTED CRYING.
[2016-10-09] MEDS: NICOTINE POLACRILEX 4 MG GUM-PK OF TEN BC PRN (14:33)
[2016-10-09] MEDS ORDERED: NICOTINE 21 MG/24HR PATCH TD ONE (15:00)
--- NOTE | 2016-10-09 15:07 | NUR ---
X 1 OF NICOTINE PATCH WAS RE-ORDERED, PT STATED IT FEEL OFF, PLACED A CALL TO DR. MORROW with NEW ORDER
--- NOTE | 2016-10-09 15:15 | NUR ---
RE-ASSESSMENT: TORADOL WAS EFFECTIVE PT SAID PAIN SCALE IS NO LONGER A 10/10 AND THAT IT IS MORE ANXIETY. PAIN SCALE DOWN TO 2/10
[2016-10-09] MEDS: QUETIAPINE FUMARATE 25 MG TABLET PO PRN (15:58)
--- NOTE | 2016-10-09 15:58 | NUR ---
PT WAS ASSESSED BY DR. MERAZ WITH AN ORDER TO GIVE PRN SEROQUEL ORDERED FOR AGITATION AND ANXIETY.
[2016-10-09] MEDS: QUETIAPINE FUMARATE 25 MG TABLET PO SCH (16:36)
--- NOTE | 2016-10-09 17:33 | NUR ---
PRN MYLANTA WAS ADMINISTERED, PT COMPLAINED OF HEARTBURN WILL RE-ASSESS IF MEDICATION EFFECTIVE
[2016-10-09] MEDS: MAG HYDROX/AL HYDROX/SIMETH 30 ML LIQUID UDC PO PRN (17:37)
[2016-10-09] MEDS: ONDANSETRON ODT 4 MG TAB.RAPDIS SL PRN (18:40)
--- NOTE | 2016-10-09 18:42 | NUR ---
PRN RE-ASSESSMENT: MYLANTA WAS UN-EFFECTIVE FOR STOMACH DISCOMFORT AND HEARTBURN, PT COMPLAINS OF NAUSEA AND MULTIPLE EPISODES OF VOMITING, PRN ZOFRAN WAS ADMINISTERED WILL RE-ASSESS PT.
--- NOTE | 2016-10-09 18:45 | NUR ---
END OF SHIFT NOTE: PT IS AWAKE AT THIS TIME, PT REMAINS ON 1:1 FOR UNSTEADY GAIT. PT VERBALIZED SHE FEELS SICK BUT IS NOTED NODDING OFF. PTS CIWA 6 FOR VERBALIZING HER ANXIETY AND WITHDRAWAL SYMPTOMS. PT'S V/S WNL. PTS LAST CIWA 6 AND COWS 1. PT RECEIVED MULTIPLE DOSES OF PRN MEDICATIONS THROUGH OUT THE SHIFT CONTINUALLY APPEARS TO BE MED SEEKING. PT NOTED BY 1:1 APARTMENT COORDINATOR THAT AFTER MEALS PT VOMITS. PT STILL DENIES HAVING ANY EATING DISORDERS. PT APPEARS TO BE SEDATED AT TIMES, BUT STILL INSIST ON HAVING MEDICATIONS BE CAUSE SHE IS SICK. WILL ENDORSE PT TO BUSINESS MANAGEMENT MANAGER NURSE.
--- NOTE | 2016-10-09 19:15 | NUR ---
START OF SHIFT Received 31 year old female patient admitted on 09/30/16 for Xanax, ETOH, Heroin and Methamphetamine dependency. Pt is full code with NKHenri. She reports a PMHx of epilepsy, fibromyalgia, Crohns, PTSD, panic disorder and eating disorder. She reports using Xanax 10-20 mg daily for 1 year. Last dose was 10 mg on 09/28/16. ETOH (vodka) 500 mL daily for 1 year. Last dose was 5 shots on 09/29/16. Heroin IV 3-4 gram daily for 1 year. Last dose as 1 gram on 09/28/16. And Methamphetamine IV 1 gram daily for 1 year. Last dose as 1 gram on 09/22/16. Per endorsement, pt completed her 5 day Valium and 5 day Subutex taper. Pt is on 5 day Phenobarbital taper started today 10/09/16 and tolerating well. Per endorsement, pt received several PRN medications of clonidine, toradol, nicotine patch and gum, seroquel, mylanta and zofran. Pt on 1:1 for unsteady gait. Pt is alert and oriented x4. Breathing is even and unlabored. Pt is safe with bed locked in lowest position, side rails up x2, sitter at bedside and call light within reach. Will continue to monitor.
[2016-10-09] MEDS: QUETIAPINE FUMARATE 200 MG TABLET PO SCH (20:25)
[2016-10-09] MEDS: PRAZOSIN HCL 1 MG CAPSULE PO SCH (20:30)
[2016-10-09] MEDS: ONDANSETRON 4 MG/2 ML VIAL IM PRN (20:34)
--- NOTE | 2016-10-09 20:34 | NUR ---
PRN ZOFRAN IM Pt reports PRN Zofran SL not effective and still complains of nausea with one episode of vomiting. PRN Zofran IM administered as ordered. Breathing even and unlabored, safety measures in place. Will monitor effectiveness.
--- NOTE | 2016-10-09 20:37 | NUR ---
MEDICATION REFUSAL Pt refused 2100 dose of Bentyl. Pt states " I don't need it." Risks and benefits explained x3, pt still refused. Breathing even and unlabored, safety measures in place. Will continue to monitor.
--- NOTE | 2016-10-09 21:34 | NUR ---
PRN ZOFRAN REASSESSMENT PRN Zofran effective. Pt is lying in bed with eyes closed noted to be asleep. No facial grimacing noted. Breathing is even and unlabored, safety measures in place. Will continue to monitor.
[2016-10-10] VITALS: BP 80/48; TEMP 98.1
--- NOTE | 2016-10-10 | NUR ---
COWS/CIWA COWS/CIWA deferred d/t order is Q4H while awake. Pt lying in bed with eyes closed noted to be asleep. Respirations 16, breathing is even and unlabored. Safety measures in place. Will monitor.
[2016-10-10] MEDS: KETOROLAC TROMETHAMINE 30 MG INJ IM PRN ×2 (03:51→16:02)
--- NOTE | 2016-10-10 03:51 | NUR ---
PRN TORADOL Pt complains of generalized body aches/pain 01/30. PRN Toradol administered as ordered. Breathing even and unlabored. Safety measures in place. Will monitor effectiveness.
[2016-10-10 04:00] VITALS: BP 94/55; TEMP 98
--- NOTE | 2016-10-10 04:51 | NUR ---
PRN TORADOL REASSESSMENT PRN Toradol effective. Pt lying comfortably in bed with eyes closed noted to be asleep. No facial grimacing noted. Breathing even and unlabored, respirations 16. Will continue to monitor.
[2016-10-10] MEDS: PANTOPRAZOLE SODIUM 40 MG TABLET.DR PO SCH (06:55)
--- NOTE | 2016-10-10 07:14 | NUR ---
END OF SHIFT Pt is a 31 year old female patient admitted on 09/30/16 for Xanax, ETOH, Heroin and Methamphetamine dependency. Pt is full code with NKA. She reports a PMHx of epilepsy, fibromyalgia, Crohns, PTSD, panic disorder and eating disorder. Pt is on 5 day Phenobarbital taper started today 10/09/16 and tolerating well. She remains on 1:1 for unsteady gait. At 2033 she received PRN Zofran, and 350 she received PRN Toradol. She slept a total of 8hrs, Intake: 355mL, Void: x1, BM:0. COWS:4, CIWA:4. She remains alert and oriented x4. Breathing is even and unlabored. Pt is safe with bed locked in lowest position, side rails up x2, sitter at bedside and call light within reach. Endorsed to oncoming shift.
[2016-10-10 08:00] VITALS: BP 94/65; TEMP 98.4
--- NOTE | 2016-10-10 08:00 | NUR ---
START OF SHIFT NOTE Received report from night nurse, 31 year old female patient admitted on 09/30/16 for Xanax, ETOH, Heroin and Methamphetamine dependence. Pt is full code with NKA. Pt reported a PMH of epilepsy, fibromyalgia, Crohn disease, PTSD, panic disorder and eating disorder. Pt reported using Xanax 10-20 mg daily for 1 year. Last dose was 10 mg on 09/28/16. ETOH (vodka) 500 mL daily for 1 year. Last dose was 5 shots on 09/29/16. Heroin IV 3-4 gram daily for 1 year. Last dose as 1 gram on 09/28/16. And Methamphetamine IV 1 gram daily for 1 year. Last dose as 1 gram on 09/22/16. Per endorsement, pt completed her 5 day Valium and 5 day Subutex taper. Pt cont on 5 day Phenobarbital taper. Per endorsement, pt received PRN medications Toradol, and Zofran IM.Pt slept for 8 hours, and last CIWA-4, COWS-4. Pt cont on 1:1 for unsteady gait. Received pt is alert and oriented x4. Breathing is even and unlabored. Denies any N/V/D at this time. Safety measures in pace, sitter at bedside and call light within reach. Will continue to monitor.
[2016-10-10] MEDS: MULTIVITAMINS,THERAPEUTIC TABLET PO SCH (09:00)
[2016-10-10] MEDS: HYDROXYZINE PAMOATE 25 MG CAPSULE PO SCH ×3 (09:16→16:11)
[2016-10-10] MEDS: CLONIDINE HCL 0.1 MG TABLET PO PRN ×2 (09:16→21:00)
[2016-10-10] MEDS: QUETIAPINE FUMARATE 25 MG TABLET PO SCH ×3 (09:16→16:12)
[2016-10-10] MEDS: THIAMINE HCL 100 MG TABLET PO SCH (09:16)
--- NOTE | 2016-10-10 09:16 | NUR ---
PRN Clonidine 0.1mg Client reports anxiety and irritability, Clonidine 0.1mg PO administered. Endorsed to primary nurse to reassess. Call light within reach. Sitter at bedside.
[2016-10-10] MEDS: ASCORBIC ACID 250 MG TABLET PO SCH ×2 (09:17→22:18)
[2016-10-10] MEDS: FOLIC ACID 1 MG TABLET PO SCH (09:17)
[2016-10-10] MEDS: GABAPENTIN 300 MG CAPSULE PO SCH ×4 (09:17→22:18)
[2016-10-10] MEDS: NICOTINE 21 MG/24HR PATCH TD SCH (09:17)
[2016-10-10] MEDS: DULOXETINE 60 MG CAPSULE.DR PO SCH ×2 (09:17→16:11)
[2016-10-10] MEDS: LEVETIRACETAM 500 MG TABLET PO SCH ×2 (09:17→22:17)
[2016-10-10] MEDS: PHENOBARBITAL 60 MG TABLET PO SCH ×3 (09:17→21:00)
[2016-10-10] MEDS: BACLOFEN 20 MG TABLET PO SCH ×3 (09:17→22:15)
[2016-10-10] MEDS: DICYCLOMINE HCL 20 MG TABLET PO SCH ×3 (09:17→21:00)
[2016-10-10] MEDS: FERROUS SULFATE 325 MG TABEC PO SCH ×2 (09:17→22:19)
--- NOTE | 2016-10-10 09:40 | NUR ---
CHANGE IN CONDITION Pt noted with bilateral heel fluid filled blister, Length 3.5 x 3.5 no undermining or tunneling noted. Clear drainage no odor noted pt also noted with bilateral lower extremities swelling. Pt also noted with superficial abrasion on her nose, cleanse with soap and water, pat dry; no bleeding or discomfort noted. Pictures taken and placed in the chart. Educate pt to avoid pressure on bilateral heels when in bed and not to wear her regular shoes and gave her hospital slippers. Pt is non-compliance by continuing to wear her shoes; notified & order for a wound consult ordered.
--- NOTE | 2016-10-10 10:16 | NUR ---
REASSESSMENT Upon reassessment pt reported medication effective, feeling less anxious and irritable. Will cont to monitor. Pt cont with 1:1 sitter for safety.
[2016-10-10] MEDS ORDERED: NEOMY/BACITRAC/POLYMI OINT 28.35 GM TUBE TOP PRN (11:00)
[2016-10-10 12:00] VITALS: BP 100/98; TEMP 98.5
[2016-10-10 16:00] VITALS: BP 96/66; TEMP 97.8
[2016-10-10] MEDS ORDERED: DIAZEPAM 5 MG TABLET PO PRN (16:00)
[2016-10-10] MEDS ORDERED: DIAZEPAM 10 MG TABLET PO PRN ×2 (16:00)
--- NOTE | 2016-10-10 16:02 | NUR ---
PRN Toradol 30mg Inj Client reports generalized body aches 01/30, Toradol 30mg Inj administered to R gluteus. Risk/benefits discuss, client verbalized understanding. Sitter at bedside. Call light within reach.
[2016-10-10] MEDS ORDERED: NICOTINE 21 MG/24HR PATCH TD ONE (16:45)
--- NOTE | 2016-10-10 17:02 | NUR ---
REASSESSMENT Upon reassessment pt reported medication effective, pain decreased to 2/10. Pt is resting comfortably in her room. Will cont to monitor. Pt cont with 1:1 sitter for safety.
[2016-10-10] MEDS: BACITRACIN/POLYMYXIN B OINT 15 GM TUBE TOP SCH ×2 (17:45→22:22)
--- NOTE | 2016-10-10 19:14 | NUR ---
END OF SHIFT NOTE Gave report to night nurse, 31 year old female patient admitted on 09/30/16 for Xanax, ETOH, Heroin and Methamphetamine dependence. Pt is full code with NKHenri. Pt reported a PMH of epilepsy, fibromyalgia, Crohn disease, PTSD, panic disorder and eating disorder. Pt reported using Xanax 10-20 mg daily for 1 year. Last dose was 10 mg on 09/28/16. ETOH (vodka) 500 mL daily for 1 year. Last dose was 5 shots on 09/29/16. Heroin IV 3-4 gram daily for 1 year. Last dose as 1 gram on 09/28/16,and Methamphetamine IV 1 gram daily for 1 year. Last dose as 1 gram on 09/22/16. Pt received PRN's medications noted to be effective, and cont with 1:1 sitter for safety. Last CIWA-5, COWS-5. Safety measures in place, Call light within reach. Pt endorsed to night nurse in stable condition.
--- NOTE | 2016-10-10 19:15 | NUR ---
START OF SHIFT Received 31 year old female patient admitted on 09/30/16 for Xanax, ETOH, Heroin and Methamphetamine dependency. Pt is full code with CYNTHIA. She reports a PMHx of epilepsy, fibromyalgia, Crohns, PTSD, panic disorder and eating disorder. She reports using Xanax 10-20 mg daily for 1 year. Last dose was 10 mg on 09/28/16. ETOH (vodka) 500 mL daily for 1 year. Last dose was 5 shots on 09/29/16. Heroin IV 3-4 gram daily for 1 year. Last dose as 1 gram on 09/28/16. And Methamphetamine IV 1 gram daily for 1 year. Last dose as 1 gram on 09/22/16. Pt completed her 5 day Valium and 5 day Subutex taper. Pt is on 5 day Phenobarbital taper started today 10/09/16 and tolerating well. Per endorsement, pt received Toradol and clonidine. Pt remains on 1:1 for unsteady gait. Pt is alert and oriented x4. Breathing is even and unlabored. Pt is safe with bed locked in lowest position, side rails up x2, sitter at bedside and call light within reach. Will continue to monitor.
[2016-10-10 20:00] VITALS: BP 121/65; TEMP 98
[2016-10-10] MEDS: PRAZOSIN HCL 1 MG CAPSULE PO SCH (21:00)
--- NOTE | 2016-10-10 21:00 | NUR ---
PRN CLONIDINE Pt complains of anxiety/agitation. Pt observed to be restless in room. PRN clonidine administered as ordered. Breathing even and unlabored, safety measures in place. Will monitor effectiveness.
[2016-10-10] MEDS ORDERED: PHENOBARBITAL 32.4 MG TABLET ONE (21:33)
[2016-10-10] MEDS ORDERED: PHENOBARBITAL 32.4 MG TABLET PO ONE (21:45)
--- NOTE | 2016-10-10 21:49 | NUR ---
Phenobarbital 60 mg was not found in [facility] at this time. House Sup. was able to get Phenobarbital 32.4 mg x 2 pills. MD Smith notified. New order from MD Smith: give Phenobarbital 32.4 mg x 2 pills once. Medication was given to patient. Will continue to monitor.
--- NOTE | 2016-10-10 22:00 | NUR ---
PRN CLONIDINE REASSESSMENT PRN medication effective. Pt observed to be less agitated and anxious. Pt noted to be calmly watching TV in room. Breathing is even and unlabored, safety measures in place. Will continue to monitor.
[2016-10-10] MEDS: QUETIAPINE FUMARATE 200 MG TABLET PO SCH (22:16)
[2016-10-11] VITALS: BP 84/45; TEMP 98
--- NOTE | 2016-10-11 | NUR ---
COWS/CIWA COWS/CIWA deferred d/t order is Q4H while awake. Pt lying in bed with eyes closed noted to be asleep. Respirations 16, breathing is even and unlabored. Safety measures in place. Will continue to monitor.
[2016-10-11 04:00] VITALS: BP 95/52; TEMP 98.1
[2016-10-11] MEDS: PANTOPRAZOLE SODIUM 40 MG TABLET.DR PO SCH (07:02)
--- NOTE | 2016-10-11 07:22 | NUR ---
END OF SHIFT Pt is a 31 year old female patient admitted on 09/30/16 for Xanax, ETOH, Heroin and Methamphetamine dependency. Pt is full code with NKA. She reports a PMHx of epilepsy, fibromyalgia, Crohns, PTSD, panic disorder and eating disorder. Pt completed her 5 day Valium and 5 day Subutex taper. Pt is currently receiving 5 day Phenobarbital taper started (10/09/16)and tolerating well. She received PRN Clonidine for anxiety/agitation. Pt still noted with bilaeral blisters to heels and small linear abrasion on bridge of nose. Pt remains on 1:1 for unsteady gait. She slept a total of 9 hrs, Intake: 750 mL, Void: x4, BM: 0. COWS:5, CIWA:5 Pt is alert and oriented x4. Breathing is even and unlabored. Pt is safe with bed locked in lowest position, side rails up x2, sitter at bedside and call light within reach. Endorsed to oncoming shift.
--- NOTE | 2016-10-11 07:38 | NUR ---
START OF SHIFT NOTE Received pt AOx4. Patient on 1:1 for unsteady gait. Patient on unit restrictions. Patient completed 5 day Valium/5 day Subutex taper. Patient on Phenobarbital, but being tapered off. Patient presents with scratch on nose and blistered on heels. PRN Clonidine given per awake overnight monitor with effectiveness. Patient slept 9 hours. Last COWS 5 CIWA 5. Encouraged group attendance to improve coping skills. Encouraged increase in fluids. Will provide safe and supportive environment. Will continue to monitor.
[2016-10-11 08:00] VITALS: BP 103/71; TEMP 98.3
[2016-10-11] MEDS: DULOXETINE 60 MG CAPSULE.DR PO SCH ×2 (09:21→16:08)
[2016-10-11] MEDS: THIAMINE HCL 100 MG TABLET PO SCH (09:21)
[2016-10-11] MEDS: QUETIAPINE FUMARATE 25 MG TABLET PO SCH ×3 (09:21→16:08)
[2016-10-11] MEDS: GABAPENTIN 300 MG CAPSULE PO SCH ×4 (09:21→21:03)
[2016-10-11] MEDS: LEVETIRACETAM 500 MG TABLET PO SCH ×2 (09:21→21:05)
[2016-10-11] MEDS: ASCORBIC ACID 250 MG TABLET PO SCH ×2 (09:22→21:05)
[2016-10-11] MEDS: MULTIVITAMINS,THERAPEUTIC TABLET PO SCH (09:22)
[2016-10-11] MEDS: FERROUS SULFATE 325 MG TABEC PO SCH ×2 (09:22→21:05)
[2016-10-11] MEDS: FOLIC ACID 1 MG TABLET PO SCH (09:22)
[2016-10-11] MEDS: PHENOBARBITAL 60 MG TABLET PO SCH ×4 (09:22→21:06)
[2016-10-11] MEDS: BACLOFEN 20 MG TABLET PO SCH ×3 (09:22→21:06)
[2016-10-11] MEDS: DICYCLOMINE HCL 20 MG TABLET PO SCH ×3 (09:22→21:06)
[2016-10-11] MEDS: KETOROLAC TROMETHAMINE 30 MG INJ IM PRN ×2 (09:30→21:20)
[2016-10-11] MEDS: CLONIDINE HCL 0.1 MG TABLET PO PRN ×3 (09:30→21:20)
[2016-10-11] MEDS: NICOTINE 21 MG/24HR PATCH TD SCH (09:30)
[2016-10-11] MEDS: BACITRACIN/POLYMYXIN B OINT 15 GM TUBE TOP SCH ×2 (09:31→21:08)
--- NOTE | 2016-10-11 09:45 | NUR ---
PRN MEDS PRN Clonidine and Toradol given per pt request. Patient reports anxiety and generalized body pain /. Will reassess.
--- NOTE | 2016-10-11 10:20 | NUR ---
PRN REASSESSMENT Medications noted to be effective. patient sleeping calmly in bed with RR even and unlabored. Bed locked and in lowest position and call jones within reach. Sitter at bedside. Will continue to monitor
[2016-10-11 12:00] VITALS: BP 95/62; TEMP 98.6
[2016-10-11] MEDS: IBUPROFEN 600 MG TABLET PO PRN (15:06)
--- NOTE | 2016-10-11 15:06 | NUR ---
PRN MEDICATIONS prn motrin given for generalized pain 10/10 on pain scale.Will reassess
--- NOTE | 2016-10-11 15:45 | NUR ---
PRN REASSESSMENT Patient states the Motrin did not help her pain and her pain is still 10/10. Will provide comfort measures and encourage deep breathing. Will administer scheduled medications to facilitate detox. Will continue to monitor patient.
[2016-10-11 16:00] VITALS: BP 105/62; TEMP 98.5
--- NOTE | 2016-10-11 17:16 | NUR ---
PRN MEDS PRN Clonidine given for c/o anxiety. Patient appears anxious. HR 120. Will reassess
--- NOTE | 2016-10-11 17:52 | NUR ---
PRN REASSESSMENT Patient states feeling less anxious. Patient states medication was effective. Will continue to monitor
--- NOTE | 2016-10-11 18:34 | NUR ---
END OF SHIFT Patient continues on Phenobarbital taper and tolerating well. Patient continues on 1:1 for unsteady gait. Patient given PRN Toradol, Motrin, and Clonidine x2. Last COWS 6 CIWA 5. Patient is resting in bed with bed locked and in lowest position and call jones within reach. Patient's behavior was appropriate during shift. All needs have been met. Safety measures in place. Will pass shift report to oncoming nurse.
--- NOTE | 2016-10-11 19:45 | NUR ---
START OF SHIFT-- Pt is a 31 year old female patient admitted on 09/30/16 for Xanax, ETOH, Heroin and Methamphetamine dependency. Pt is full code with NKA. She reports a PMH of epilepsy, fibromyalgia, Crohns, PTSD, panic disorder and eating disorder. Pt completed her 5 day Valium and 5 day Subutex taper. Pt is currently receiving 5 day Phenobarbital taper started (10/09/16)and tolerating well. Pt noted with bilaeral blisters to heels and small linear abrasion on bridge of nose. Pt remains on 1:1 for unsteady gait. Pt is alert and oriented x4. Breathing is even and unlabored. Pt is safe with bed locked in lowest position, side rails up x2, sitter at bedside and call light within reach,will continue to monitor.
[2016-10-11 20:00] VITALS: BP 105/73; TEMP 98.3
[2016-10-11] MEDS: PRAZOSIN HCL 1 MG CAPSULE PO SCH (21:04)
[2016-10-11] MEDS: QUETIAPINE FUMARATE 200 MG TABLET PO SCH (21:05)
--- NOTE | 2016-10-11 21:22 | NUR ---
PRN MEDS- PRN TORADOL IM GIVEN ORDERED FOR C/O PAIN IN RIGHT HAND.PAIN LEVEL IS 9/10. PRN CLONIIDINE GIVEN ORDERED FOR ANXIETY PER PT REQUEST.WILL MONITOR.
--- NOTE | 2016-10-11 22:30 | NUR ---
PRN F/U PT SLEEPING COMFORTABLY IN HER BED,BREATHING IS EVEN AND NON LABORED.NO S/S OF DISTRESS NOTED,SITTER AT BED SIDE.WILL BE MONITORED FOR SAFETY.
[2016-10-12] VITALS: BP 82/44; TEMP 97.2
[2016-10-12 04:00] VITALS: BP 70/45; TEMP 97.7
--- NOTE | 2016-10-12 04:00 | NUR ---
V/S REFUSED,COWS/CIWA deferred d/t order is Q4H while awake. Pt lying in bed with eyes closed noted to be asleep. Respirations 16, breathing is even and unlabored. Safety measures in place. Will continue to monitor.
[2016-10-12] MEDS: PANTOPRAZOLE SODIUM 40 MG TABLET.DR PO SCH (06:42)
--- NOTE | 2016-10-12 07:00 | NUR ---
END OF SHIFT Pt is a 31 year old female patient admitted on 09/30/16 for Xanax, ETOH, Heroin and Methamphetamine dependency. Pt is full code with NKA. She reports a PMHx of epilepsy, fibromyalgia, Crohns, PTSD, panic disorder and eating disorder. Pt is currently receiving 5 day Phenobarbital taper started (10/09/16)and tolerating well. Pt noted with bilaeral blisters to heels and small linear abrasion on bridge of nose. Pt remains on 1:1 for unsteady gait. Pt is alert and oriented x4. Breathing is even and unlabored.PRN Toradol and Clonidine given last night.Pt slept 8 hrs,fluid intake was 474 MLS ,voided x 3,BM X 1 . Pt is safe with bed locked in lowest position, side rails up x2, sitter at bedside and call light within reach,will continue to monitor.
--- NOTE | 2016-10-12 07:01 | NUR ---
Start of Shift Notes: Received patient in her room with a 1:1. Alert and oriented x 4. Verbally responsive. Able to make need known. Respirations even and unlabored. No SOB noted. Skin warm and dry to touch. Abdomen and soft non-distended with BS (+) in all 4 quadrants. No complains of N/V/D or constipation noted. Voids independently. Denies dysuria. Ambulatory ad martin with steady gait. Patient is a 31 year old female admitted for BZO/ETOH/ and opiate dependence who was placed on a 5-day Phenobarbital taper as ordered. No adverse reactions noted. Has past medical hx of epilepsy, fibromyalgia, Crohn's disease, PTSD, panic disorder, eating disorder. NKA. FULL CODE. Regular diet. On fall and seizure precautions. Educated patient on her current plan of care and medication regimen. Encouraged oral fluid intake and encouraged group participation to learn new skills to prevent relapse. Will continue to monitor closely.
[2016-10-12 08:00] VITALS: BP 90/60; TEMP 98.2
[2016-10-12] MEDS: QUETIAPINE FUMARATE 25 MG TABLET PO SCH ×3 (08:14→16:43)
[2016-10-12] MEDS: DICYCLOMINE HCL 20 MG TABLET PO SCH ×3 (08:14→18:00)
[2016-10-12] MEDS: BACLOFEN 20 MG TABLET PO SCH ×2 (08:15→14:08)
[2016-10-12] MEDS: BACITRACIN/POLYMYXIN B OINT 15 GM TUBE TOP SCH ×2 (08:15→20:30)
[2016-10-12] MEDS: FOLIC ACID 1 MG TABLET PO SCH (08:15)
[2016-10-12] MEDS: DULOXETINE 60 MG CAPSULE.DR PO SCH ×2 (08:15→16:43)
[2016-10-12] MEDS: THIAMINE HCL 100 MG TABLET PO SCH (08:15)
[2016-10-12] MEDS: GABAPENTIN 300 MG CAPSULE PO SCH ×4 (08:15→20:33)
[2016-10-12] MEDS: FERROUS SULFATE 325 MG TABEC PO SCH ×2 (08:15→20:33)
[2016-10-12] MEDS: LEVETIRACETAM 500 MG TABLET PO SCH ×2 (08:16→20:33)
[2016-10-12] MEDS: ASCORBIC ACID 250 MG TABLET PO SCH ×2 (08:16→20:33)
[2016-10-12] MEDS: PHENOBARBITAL 60 MG TABLET PO SCH ×3 (08:16→20:33)
[2016-10-12] MEDS: MULTIVITAMINS,THERAPEUTIC TABLET PO SCH (08:16)
[2016-10-12] MEDS: KETOROLAC TROMETHAMINE 30 MG INJ IM PRN (08:16)
--- NOTE | 2016-10-12 08:16 | NUR ---
Toradol 30 mg IM given: Patient complained of 9/10 generalized body aches. Noted with tearfulness and rubbing joints/muscles. Pain is related to fibromyalgia and withdrawal symptoms. COWS 6/CIWA 1. Medicated patient with Toradol 30 mg IM as ordered. Will monitor for effectiveness.
--- NOTE | 2016-10-12 08:46 | NUR ---
Re-assessment: Per patient, PRN Toradol was effective in reducing pain. PL is now 08/30.
[2016-10-12] MEDS: NICOTINE 21 MG/24HR PATCH TD SCH (09:00)
--- NOTE | 2016-10-12 09:59 | NUR ---
Nicoderm patch not adminstered: Patient refused Nicoderm patch. Discouraged patient from smoking. Patient requires further reinforcement of smoking cessation. Smoking education provided. MD aware. Nicoderm patch not administered.
[2016-10-12 12:00] VITALS: BP 110/64; TEMP 98.6
[2016-10-12] MEDS ORDERED: LORAZEPAM 1 MG TABLET PO PRN ×3 (13:15→16:15)
--- NOTE | 2016-10-12 13:30 | NUR ---
Wound Consult: Patient's bilateral heel seen and examined by Martha wound care nurse with new orders. Orders noted and carried out.
--- NOTE | 2016-10-12 13:30 | NUR ---
WOUND CARE CONSULT: PT PRESENTS WITH BILATERAL HEEL BLISTERS. PT STATES HAS HAD SWOLLEN FEET AND WORE TIGHT SHOES. RECOMMENDATIONS MADE FOR WOUND CARE AND SKIN PROTECTION. DISCUSSED WITH NURSING STAFF. PT INSTRUCTED TO ELEVATE LEGS ON PILLOWS. PT VERBALIZED UNDERSTANDING. RT ARM HEALING WOUNDS PER SURGEON. DRESSING TO RT ARM NOT REMOVED AND NOTED TO BE DRY AND INTACT. WILL SEE PRN. ANDREA IN AGREEMENT WITH PLAN OF CARE. Addendum: 10/12/16 at 1332 by HEATHER RAYMOND RN Amended: Links added.
[2016-10-12] MEDS: CLONIDINE HCL 0.1 MG TABLET PO PRN (14:00)
--- NOTE | 2016-10-12 14:00 | NUR ---
Clonidine 0.1mg PO given: Patient complains of anxiety and agitation. Non-pharmacological interventions were provided. Attempted to redirect the patient but did not help. Medicated patient with Clonidine 0.1mg PO as ordered. Will monitor for effectiveness.
--- NOTE | 2016-10-12 15:00 | NUR ---
Re-assessment: Per patient, PRN Clonidine was effective in reducing patient's anxiety.
--- NOTE | 2016-10-12 15:30 | NUR ---
Behavior: Patient noted with angry outburst. Patient was placed on room restriction and no patio privalages per MD and administration for safety. Patient demanded to smoke. Nicorette gum and nicoderm patch was offered but patient refused. Demanded to receive more meds. VS stable. COWS 3, CIWA 3. Patient does not meet parameter for PRN Ativan administration. Noted to yell at the hallways and towards staff, showing inappropriate verbal behavior. Patient was immediately redirected. MD aware of patient's current behavior.
[2016-10-12 16:00] VITALS: BP 94/63; TEMP 98.3
[2016-10-12] MEDS: BACLOFEN 20 MG TABLET PO PRN (16:45)
--- NOTE | 2016-10-12 16:45 | NUR ---
Baclofen 20 mg PO given: Patient noted with complain of 6/10 muscle aches. Non-pharmacological interventions were provided but ineffective. Medicated patient with Baclofen 20 mg PO as ordered. Will monitor for effectiveness.
--- NOTE | 2016-10-12 17:45 | NUR ---
Re-assessment: Per patient, PRN Baclofen was effective in reducing patient's abdominal cramps.
--- NOTE | 2016-10-12 18:14 | NUR ---
Bentyl 20 mg PO not adminstered: Patient refused Bentyl 20 mg PO at this time. Patient states "I don't need that crap." Notified .
--- NOTE | 2016-10-12 18:31 | NUR ---
End of Shift Notes: Patient is a 31 year old female admitted for BZO, ETOH and opiate dependence who was originally placed on a 5-day Valium and 5-day Subutex taper as ordered. No adverse reactions noted. However, patient was then noted to be started on a 5-day Phenobarbital taper as ordered that started on 10/09/2016. Patient is tolerating taper well. No delayed reactions noted. Has past medical hx of epilepsy, fibromyalgia, Crohns disease, PTSD, panic disorder and eating disorder. Prior to admission, patient was using 10 to 20 mg of Xanax, 500cc of Vodka, 3-4 grams of Heroin and 1 gram of methamphetamine intermittently. On 1:1 for safety due to risk for falls and seizure precautions. With presence of bilateral heels pressure sores with ongoing treatment of triple ATB ointment and mepilex gauze as ordered. No s/s of infection noted. Patients VS were closely monitored. No significant abnormalities noted. Patients BP tends to run low. Oral fluids encouraged. MD aware. Withdrawal symptoms closely monitored. Patient presented with anxiety, and agitation. Initial COWS 6/CIWA 1. Last COWS 4/CIWA 3. Nicotine patch refused at 0900. Education provided. Toradol 30 mg IM given at 0816 due to complains of body aches with help after 1 hour. Clonidine 0.1mg PO given at 1400 with help and Baclofen 20 mg PO at 1645 for muscle aches and pains with help. Patient appears to ask for more meds despite explanation of risk and adverse effects. MD aware of patients behavior. All needs met and attended. Will continue to monitor closely.
--- NOTE | 2016-10-12 19:30 | NUR ---
START OF SHIFT Pt is a 31 year old female patient admitted on 09/30/16 for Xanax, ETOH, Heroin and Methamphetamine dependency. Pt is full code with NKA. She reports a PMHx of epilepsy, fibromyalgia, Crohns, PTSD, panic disorder and eating disorder. Pt is currently receiving 5 day Phenobarbital taper started (10/09/16)and tolerating well. Pt noted with bilaeral blisters to heels and small linear abrasion on bridge of nose. Pt remains on 1:1 for unsteady gait. Pt is alert and oriented x4. Breathing is even and unlabored. Pt is safe with bed locked in lowest position, side rails up x2, sitter at bedside and call light within reach,will continue to monitor.
[2016-10-12 20:00] VITALS: BP 98/73; TEMP 98.1
[2016-10-12] MEDS: PRAZOSIN HCL 1 MG CAPSULE PO SCH (20:32)
[2016-10-12] MEDS: QUETIAPINE FUMARATE 200 MG TABLET PO SCH (20:32)
[2016-10-13] VITALS: BP 85/47; TEMP 98.1
--- NOTE | 2016-10-13 | NUR ---
COWS/CIWA Deferred: COWS and CIWA assessments deferred for sleep.P seen sleeping comfortably in bed,no s/s of distress noted,sitter at bed side. All safety precautions are in place. Will continue to monitor.
--- NOTE | 2016-10-13 04:00 | NUR ---
COWS/CIWA Deferred. V/S REFUSED COWS and CIWA assessments deferred for sleep.P seen sleeping comfortably in bed,no s/s of distress noted,sitter at bed side. All safety precautions are in place. Will continue to monitor.
--- NOTE | 2016-10-13 06:41 | NUR ---
END OF SHIFT Pt is a 31 year old female patient admitted on 09/30/16 for Xanax, ETOH, Heroin and Methamphetamine dependency. Pt is full code with NKA. She reports a PMHx of epilepsy, fibromyalgia, Crohns, PTSD, panic disorder and eating disorder. Pt is currently receiving 5 day Phenobarbital taper started (10/09/16)and tolerating well. Pt noted with bilaeral blisters to heels and small linear abrasion on bridge of nose. Pt remains on 1:1 for unsteady gait. Pt is alert and oriented x4. Breathing is even and unlabored.No PRN meds given last night,Pt slept 9 hrs,fluid intake was 855 mls,voided x 2 . Pt is safe with bed locked in lowest position, side rails up x2, sitter at bedside and call light within reach,will continue to monitor.
[2016-10-13] MEDS: DICYCLOMINE HCL 20 MG TABLET PO SCH ×4 (06:53→17:25)
[2016-10-13] MEDS: PANTOPRAZOLE SODIUM 40 MG TABLET.DR PO SCH (06:53)
--- NOTE | 2016-10-13 07:20 | NUR ---
Start Of Shift Patient Received from shift production supervisor nurse. Patient is a 31 y/o female admitted for Opiate, Benzo and ETOH dependence. Pt is full code regular diet on fall and seizure precautions denies any food or drug allergies. Patient completed her Valium & Subutex taper. Patients discharge was extended and Patient was placed on a 5 day Phenobarbital taper. Patient is on Unit restriction per MD order. Patient has right arm open wound post I&D. Dressing clean, dry & intact. Pt noted with bilateral blisters to heels and small linear abrasion on bridge of nose. Pt remains on 1:1 for unsteady gait and safety. Patient also noted with non-pitting edema on both lower extremities +1 MD notified. Last COWS 3 CIWA 3. Pt was not given any PRN medications during the shift production supervisor. Pt slept for a total of 9 hours. Pt is safe with bed locked in lowest position, side rails up x2, sitter at bedside and call light within reach, will continue to monitor.
[2016-10-13 08:00] VITALS: BP 95/58; TEMP 98.3
[2016-10-13] MEDS: BACITRACIN/POLYMYXIN B OINT 15 GM TUBE TOP SCH ×2 (09:00→20:50)
--- NOTE | 2016-10-13 09:59 | NUR ---
Wound care performed Pt tolerated well, Pt refused Kerlix, requested for a Band-Aid instead, pt educated about importance of following wound consult instructions, pt verbalized understanding but still refused stating "it is very uncomfortable with those on". All needs met, triple AB ointment applied. will continue to monitor.
[2016-10-13] MEDS: DULOXETINE 60 MG CAPSULE.DR PO SCH ×2 (10:00→17:25)
[2016-10-13] MEDS: GABAPENTIN 300 MG CAPSULE PO SCH ×4 (10:01→20:48)
[2016-10-13] MEDS: MULTIVITAMINS,THERAPEUTIC TABLET PO SCH (10:01)
[2016-10-13] MEDS: FOLIC ACID 1 MG TABLET PO SCH (10:01)
[2016-10-13] MEDS: PHENOBARBITAL 60 MG TABLET PO SCH ×2 (10:01→20:46)
[2016-10-13] MEDS: LEVETIRACETAM 500 MG TABLET PO SCH ×2 (10:01→20:43)
[2016-10-13] MEDS: FERROUS SULFATE 325 MG TABEC PO SCH ×2 (10:01→20:42)
[2016-10-13] MEDS: THIAMINE HCL 100 MG TABLET PO SCH (10:01)
[2016-10-13] MEDS: ASCORBIC ACID 250 MG TABLET PO SCH ×2 (10:02→20:44)
[2016-10-13] MEDS: NICOTINE 21 MG/24HR PATCH TD SCH (10:02)
[2016-10-13] MEDS: QUETIAPINE FUMARATE 25 MG TABLET PO SCH ×3 (10:02→17:25)
[2016-10-13] MEDS: IBUPROFEN 600 MG TABLET PO PRN ×2 (10:13→21:29)
[2016-10-13] MEDS: BACLOFEN 20 MG TABLET PO PRN ×2 (10:13→19:49)
--- NOTE | 2016-10-13 10:13 | NUR ---
PRN MEDICATION Pt c/o generalized muscle pain rating it 6/10 and a headache rating it 5/10 requested something for relief, non-pharmacological techniques interventions provided x3 and were not effective. PRN Baclofen 10mg and Motrin 600mg administered PO, educated pt about s/e of medication and when to contact nurse. all needs met, all safety measures in place, will continue to monitor.
--- NOTE | 2016-10-13 11:13 | NUR ---
PRN REASSESSMENT Upon reassessment medication noted to be effective pt reported a decrease in pain to 2/10 for generalized pain and 1/10 for headache. Instructed pt to contact nurse if pain reoccurred. All needs met, all safety measures in place will continue to monitor.
[2016-10-13 12:00] VITALS: BP 107/70; TEMP 98.1
[2016-10-13] MEDS: LORAZEPAM 1 MG TABLET PO PRN ×2 (12:29→17:25)
--- NOTE | 2016-10-13 12:29 | NUR ---
PRN MEDICATION Pt c/o Anxiety presented with agitation and restlessness sweats and tremors, CIWA score of 8 requested something for relief, non-pharmacological techniques interventions provided x3 and were not effective. PRN Ativan 1mg administered PO, educated pt about s/e of medication and when to contact nurse. all needs met, all safety measures in place, will continue to monitor.
--- NOTE | 2016-10-13 13:20 | NUR ---
PRN REASSESSMENT Upon reassessment medication noted to be effective pt reported a decrease in Anxiety CIWA score has dropped to 5. Instructed pt to contact nurse if symptoms reoccurred. All needs met, all safety measures in place will continue to monitor.
[2016-10-13 16:00] VITALS: BP 103/71; TEMP 97.5
--- NOTE | 2016-10-13 17:25 | NUR ---
PRN MEDICATION Pt c/o Anxiety presented with mild agitation, restlessness, and moderate tremors, CIWA score of 9 requested something for relief, non-pharmacological techniques interventions provided x3 and were not effective. PRN Ativan 1mg administered PO, educated pt about s/e of medication and when to contact nurse. All needs met, all safety measures in place, will continue to monitor.
--- NOTE | 2016-10-13 18:29 | NUR ---
PRN REASSESSMENT Upon reassessment medication noted to be effective pt reported a decrease in Anxiety CIWA score has dropped to 7. Instructed pt to contact nurse if symptoms reoccurred. All needs met, all safety measures in place will continue to monitor.
--- NOTE | 2016-10-13 19:15 | NUR ---
START OF SHIFT Received 31 year old female patient admitted on 09/30/16 for Xanax, ETOH, Heroin and Methamphetamine dependency. Pt is full code with NKHenri. She reports a PMHx of epilepsy, fibromyalgia, Crohns, PTSD, panic disorder and eating disorder. She reports using Xanax 10-20 mg daily for 1 year. Last dose was 10 mg on 09/28/16. ETOH (vodka) 500 mL daily for 1 year. Last dose was 5 shots on 09/29/16. Heroin IV 3-4 gram daily for 1 year. Last dose was 1 gram on 09/28/16. And Methamphetamine IV 1 gram daily for 1 year. Last dose was 1 gram on 09/22/16. Pt completed her 5 day Valium and 5 day Subutex taper. Pt is on 5 day Phenobarbital taper started on 10/09/16 and tolerating well. Per endorsement, pt received PRN Baclofen, Motrin and Ativan x2. Pt remains on 1:1 for unsteady gait. Pt is alert and oriented x4. Breathing is even and unlabored. Pt is safe with bed locked in lowest position, side rails up x2, sitter at bedside and call light within reach. Will continue to monitor.
[2016-10-13] MEDS: CLONIDINE HCL 0.1 MG TABLET PO PRN (19:49)
[2016-10-13] MEDS: HYDROXYZINE PAMOATE 25 MG CAPSULE PO PRN (19:49)
--- NOTE | 2016-10-13 19:49 | NUR ---
PRN CLONIDINE,VISTARIL, BACLOFEN Pt complains of anxiety, agitation and muscle spasms and aches /. PRN Clonidine, Vistaril and Baclofen administered as ordered. Breathing even and unlabored, respirations 16 and safety measures in place. Will continue to monitor effectiveness of medications.
--- NOTE | 2016-10-13 19:53 | NUR ---
End Of Shift Patient is a 31 y/o female admitted for Opiate, Benzo and ETOH dependence. Pt is full code regular diet on fall and seizure precautions denies any food or drug allergies. Patient completed her Valium & Subutex taper. Patients discharge was extended and Patient was placed on a 5 day Phenobarbital taper. Patient is on Unit restriction per MD order. Patient has right arm closed wound post I&D. Dressing clean, dry & intact. Pt noted with bilateral blisters to heels and small linear abrasion on bridge of nose. Pt remains on 1:1 for unsteady gait and safety. Pt received PRN Baclofen, Motrin and Ativan 1mg X2 per CIWA scores medications effective . Last COWS 7 CIWA 7 .Detox medication effective at reducing withdrawal symptoms. Patient encouraged to attend group therapies/sessions to learn new coping skills to recent relapse, patient denies SI/HI. Pt is safe with bed locked in lowest position, side rails up x2, sitter at bedside and call light within reach, endorsement given to welder 2nd shift nurse.
[2016-10-13 20:00] VITALS: BP 101/73; TEMP 98
[2016-10-13] MEDS: QUETIAPINE FUMARATE 200 MG TABLET PO SCH (20:44)
[2016-10-13] MEDS: PRAZOSIN HCL 1 MG CAPSULE PO SCH (20:48)
--- NOTE | 2016-10-13 20:49 | NUR ---
PRN REASSESSMENT PRN medications effective. Pt observed to be more calm and less anxious. Muscle aches and spasms decreased to 6/10. Breathing is even and unlabored, respirations 16. Safety measures in place. Will continue to monitor.
--- NOTE | 2016-10-13 21:29 | NUR ---
PRN MOTRIN Pt complains of right arm pain 10/30. PRN Motrin administered as ordered. Breathing even and unlabored, safety measures in place. Will monitor effectiveness of medication.
--- NOTE | 2016-10-13 22:29 | NUR ---
PRN MOTRIN REASSESSMENT PRN Motrin effective. Pt lying in bed with eyes closed noted to be asleep. No facial grimacing. Respirations 16, breathing is even and unlabored. Safety measures in place. Will continue to monitor.
[2016-10-14] VITALS: BP 95/70
--- NOTE | 2016-10-14 | NUR ---
COWS/CIWA DEFERRED Pt lying in bed with eyes closed noted to be asleep. Respirations 16, breathing is even and unlabored,safety measures in place. Will continue to monitor.
[2016-10-14 04:00] VITALS: BP 93/75
[2016-10-14] MEDS: DICYCLOMINE HCL 20 MG TABLET PO SCH ×4 (06:00→17:39)
--- NOTE | 2016-10-14 06:08 | NUR ---
MEDICATION REFUSAL Pt refused 0600 dose of Bentyl. Risks/benefits explained x3. Pt still refused. Breathing even and unlabored, safety measures in place. Will continue to monitor.
[2016-10-14] MEDS: PANTOPRAZOLE SODIUM 40 MG TABLET.DR PO SCH (06:40)
--- NOTE | 2016-10-14 07:09 | NUR ---
Start of Shift Endorsement received from nightshift nurse. Pt is a 31 y/o female admitted for Xanax, alcohol and heroin dependence. Pt is on a 5 day Phenobarbital taper scheduled to completed on 10/15/16. Pt is withdrawing moderately at this time AEB CIWA 6, COWS 6 at 0400. PT is on 1:1 for safety reasons at this time until farther evaluation. Pt received PRN Clonidine, Baclofen, Vistaril and Motrin. PT reports sleeping 8 hours. VS WNL. Full Code. PT is alert and oriented x4. Pt is in STABLE condition at this time. Remains compliant with medication and diet regimen. All needs have been met, All safety measures in place per hospital policy. Bed in lowest position, side rails up x2, call-light within reach. Will continue to monitor
--- NOTE | 2016-10-14 07:14 | NUR ---
END OF SHIFT Pt is a 31 year old female patient admitted on 09/30/16 for Xanax, ETOH, Heroin and Methamphetamine dependency. Pt is full code with NKA. She reports a PMHx of epilepsy, fibromyalgia, Crohns, PTSD, panic disorder and eating disorder. Pt receiving 5 day Phenobarbital taper started on 10/09/16 and is tolerating well. At 1949 she received PRN Clonidine, Vistaril and Baclofen. At 2128 she received PRN Motrin. 0000 Bentyl was not administered d/t pt was sleep, and at 0600 pt refused bentyl. Pt remains on 1:1 for unsteady gait. Pt remains alert and oriented x4. Breathing is even and unlabored. Pt is safe with bed locked in lowest position, side rails up x2, sitter at bedside and call light within reach. Endorsed to oncoming shift.
[2016-10-14 08:00] VITALS: BP 102/74; TEMP 98
[2016-10-14] MEDS ORDERED: PHENOBARBITAL 60 MG TABLET PO SCH (09:00)
[2016-10-14] MEDS: BACITRACIN/POLYMYXIN B OINT 15 GM TUBE TOP SCH ×2 (09:00→21:46)
[2016-10-14] MEDS: THIAMINE HCL 100 MG TABLET PO SCH (09:17)
[2016-10-14] MEDS: MULTIVITAMINS,THERAPEUTIC TABLET PO SCH (09:17)
[2016-10-14] MEDS: DULOXETINE 60 MG CAPSULE.DR PO SCH ×2 (09:17→16:31)
[2016-10-14] MEDS: QUETIAPINE FUMARATE 25 MG TABLET PO SCH ×3 (09:17→16:31)
[2016-10-14] MEDS: FERROUS SULFATE 325 MG TABEC PO SCH ×2 (09:17→21:44)
[2016-10-14] MEDS: FOLIC ACID 1 MG TABLET PO SCH (09:17)
[2016-10-14] MEDS: LEVETIRACETAM 500 MG TABLET PO SCH ×2 (09:17→21:45)
[2016-10-14] MEDS: GABAPENTIN 300 MG CAPSULE PO SCH ×4 (09:17→21:44)
[2016-10-14] MEDS: NICOTINE 21 MG/24HR PATCH TD SCH (09:18)
[2016-10-14] MEDS: BACLOFEN 20 MG TABLET PO PRN ×2 (09:28→17:39)
[2016-10-14] MEDS: ASCORBIC ACID 250 MG TABLET PO SCH ×2 (09:28→21:44)
[2016-10-14] MEDS: IBUPROFEN 600 MG TABLET PO PRN ×2 (09:28→16:31)
[2016-10-14] MEDS: HYDROXYZINE PAMOATE 25 MG CAPSULE PO PRN ×3 (11:12→20:26)
[2016-10-14 12:00] VITALS: BP 111/77; TEMP 98.2
[2016-10-14] MEDS: CLONIDINE HCL 0.1 MG TABLET PO PRN ×2 (13:59→20:26)
[2016-10-14] MEDS ORDERED: HYDROXYZINE PAM25 M1 PO (14:39)
[2016-10-14] MEDS ORDERED: SEROQUEL25 MG PO (14:39)
[2016-10-14] MEDS ORDERED: QUETIAPINE FUMARATE 25 MG TABLET PO ONE (15:30)
[2016-10-14 16:00] VITALS: BP 106/65; TEMP 98.2
--- NOTE | 2016-10-14 19:01 | NUR ---
End of Shift Endorsement given to nightshift nurse. Pt is a 31 y/o female admitted for Xanax, alcohol and heroin dependence. Pt is on a 5 day Pt is scheduled to be discharged at 10/15/16.. Pt is withdrawing moderately at this time AEB CIWA 5, COWS 5 at 1600. PT is on 1:1 for safety reasons at this time until farther evaluation. All documentation has been completed for discharge and education has been provided. Pt received PRN Clonidine, Baclofen x2, Vistaril x2 and Motrin x2. Pt received one time order of Seroquel per Dr. Nolasco. PT did not participate in groups, PT did participate in activities. Intake: 4026ml, Void x11, BM x0. VS WNL. Full Code. PT is alert and oriented x4. Pt is in STABLE condition at this time. Remains compliant with medication and diet regimen. All needs have been met, All safety measures in place per hospital policy. Bed in lowest position, side rails up x2, call-light within reach. Will continue to monitor
--- NOTE | 2016-10-14 19:15 | NUR ---
START OF SHIFT Received 31 year old female patient admitted on 09/30/16 for Xanax, ETOH, Heroin and Methamphetamine dependency. Pt is full code with NKHenri. She reports a PMHx of epilepsy, fibromyalgia, Crohns, PTSD, panic disorder and eating disorder. She reports using Xanax 10-20 mg daily for 1 year. Last dose was 10 mg on 09/28/16. ETOH (vodka) 500 mL daily for 1 year. Last dose was 5 shots on 09/29/16. Heroin IV 3-4 gram daily for 1 year. Last dose was 1 gram on 09/28/16. And Methamphetamine IV 1 gram daily for 1 year. Last dose was 1 gram on 09/22/16. Pt completed her 5 day Valium and 5 day Subutex taper. Pt completed her 5 day Phenobarbital taper started on 10/09/16. Per endorsement, she is scheduled to be DC tomorrow ( 10/15/16) pt received PRN Vistaril x2, Baclofen x2 and Clonidine. Pt remains on 1:1 for unsteady gait. Pt is alert and oriented x4. Breathing is even and unlabored. Pt is safe with bed locked in lowest position, side rails up x2, sitter at bedside and call light within reach. Will continue to monitor.
[2016-10-14 20:00] VITALS: BP 105/62; TEMP 98
--- NOTE | 2016-10-14 20:26 | NUR ---
PRN VISTARIL/CLONIDINE Pt complains of anxiety/agitation. PRN Vistaril and clonidine administered as ordered. Breathing is even and unlabored, safety measures in place. Will monitor effectiveness of medications.
--- NOTE | 2016-10-14 21:26 | NUR ---
PRN VISTARIL/CLONIDINE REASSESSMENT Pt reports that PRN Vistaril/Clonidine somewhat effective. Pt observed to be less agitated sitting in room. Breathing is even and unlabored, safety measures in place. Will continue to monitor.
[2016-10-14] MEDS: QUETIAPINE FUMARATE 200 MG TABLET PO SCH (21:43)
[2016-10-14] MEDS: PRAZOSIN HCL 1 MG CAPSULE PO SCH (21:43)
[2016-10-14] MEDS: MAG HYDROX/AL HYDROX/SIMETH 30 ML LIQUID UDC PO PRN (22:52)
--- NOTE | 2016-10-14 22:52 | NUR ---
PRN MAALOX Pt complains of heartburn. PRN MAALOX administered as ordered. Breathing even and unlabored, safety measures in place. Will monitor effectiveness.
--- NOTE | 2016-10-14 23:52 | NUR ---
PRN MAALOX REASSESSMENT PRN MAALOX effective. Pt is lying in bed with eyes closed noted to be asleep. No facial grimacing noted. Breathing is even and unlabored, respirations 16. Safety measures in place. Will continue to monitor.
[2016-10-15] VITALS: BP 88/50; TEMP 98.7
[2016-10-15 04:00] VITALS: BP 90/72
[2016-10-15] MEDS: DICYCLOMINE HCL 20 MG TABLET PO SCH ×2 (06:00)
--- NOTE | 2016-10-15 06:45 | NUR ---
PRN BACLOFEN Pt complains of body aches 11/29. PRN Baclofen administered as ordered. Will endorse to monitor effectiveness.
[2016-10-15] MEDS: PANTOPRAZOLE SODIUM 40 MG TABLET.DR PO SCH (06:49)
[2016-10-15] MEDS: BACLOFEN 20 MG TABLET PO PRN (06:49)
--- NOTE | 2016-10-15 07:30 | NUR ---
END OF SHIFT Pt is a 31 year old female patient admitted on 09/30/16 for Xanax, ETOH, Heroin and Methamphetamine dependency. Pt is full code with NKA. Pt completed her 5 day Valium and 5 day Subutex taper. Pt completed her 5 day Phenobarbital taper started on 10/09/16. She is scheduled to be DC today ( 10/15/16) to [facility]. At 2025 she received PRN Vistaril and Clonidine. Pt remains on 1:1 for unsteady gait. She slept a total of 5hrs, Intake: 500 mL, Void: x3, BM:0, Pt remains alert and oriented x4. Breathing is even and unlabored. Pt is safe with bed locked in lowest position, side rails up x2, sitter at bedside and call light within reach. Endorsed to oncoming shift.
--- NOTE | 2016-10-15 07:45 | NUR ---
start of shift note: received pt fromnight shift nurse pt is admitted for benzo/etoh/opiate/meth withdrawal/dependence. pt has completed pheno,valium and subutex taper. pt is in stable condition at this time. tx to abscess and bilateral heels were rendered. pt is set for discharge today. will assist pt in discharging and will continue to monitor pt for any changes
[2016-10-15] MEDS: NICOTINE 21 MG/24HR PATCH TD SCH (08:24)
[2016-10-15] MEDS: BACITRACIN/POLYMYXIN B OINT 15 GM TUBE TOP SCH (08:24)
[2016-10-15] MEDS: FOLIC ACID 1 MG TABLET PO SCH (08:24)
[2016-10-15] MEDS: THIAMINE HCL 100 MG TABLET PO SCH (08:24)
[2016-10-15] MEDS: LEVETIRACETAM 500 MG TABLET PO SCH (08:24)
[2016-10-15] MEDS: GABAPENTIN 300 MG CAPSULE PO SCH (08:24)
[2016-10-15] MEDS: ASCORBIC ACID 250 MG TABLET PO SCH (08:24)
[2016-10-15] MEDS: QUETIAPINE FUMARATE 25 MG TABLET PO SCH (08:24)
[2016-10-15] MEDS: DULOXETINE 60 MG CAPSULE.DR PO SCH (08:24)
[2016-10-15 08:25] VITALS: BP 102/86
[2016-10-15] MEDS: CLONIDINE HCL 0.1 MG TABLET PO PRN (08:25)
[2016-10-15] MEDS: FERROUS SULFATE 325 MG TABEC PO SCH (08:31)
[2016-10-15] MEDS: MULTIVITAMINS,THERAPEUTIC TABLET PO SCH (08:31)
[2016-10-15] MEDS: IBUPROFEN 600 MG TABLET PO PRN (08:51)
[2016-10-15] MEDS: HYDROXYZINE PAMOATE 25 MG CAPSULE PO PRN (08:52)
--- NOTE | 2016-10-15 09:40 | NUR ---
discharge note: pt left the unit in stable condition, pt teaching was administered and pt verbalized understanding. pt without s/s of pain or discomfort or withdrawal symptoms. pt's all personal belongings were returned. pt will be transferred to [facility] via private car.
== END 2016-10-15 09:40 | disposition other institution (70) | DRG 895 ==
LOC: SRC 17:24
PROVIDERS: ADMIT Internal Medicine; ATTEND Internal Medicine
DX: F11.23 Opioid dependence with withdrawal (principal); F50.2 Bulimia nervosa; L03.113 Cellulitis of right upper limb; L02.413 Cutaneous abscess of right upper limb; F31.81 Bipolar II disorder; K50.90 Crohn's disease, unspecified, without complications; F10.230 Alcohol dependence with withdrawal, uncomplicated; F13.230 Sedative, hypnotic or anxiolytic dependence with withdrawal, uncomplicated; K70.10 Alcoholic hepatitis without ascites; Y90.9 Presence of alcohol in blood, level not specified; G40.909 Epilepsy, unspecified, not intractable, without status epilepticus; S41.131S Puncture wound without foreign body of right upper arm, sequela; X78.8XXS Intentional self-harm by other sharp object, sequela; Z80.3 Family history of malignant neoplasm of breast; Z83.3 Family history of diabetes mellitus; M79.7 Fibromyalgia; D50.9 Iron deficiency anemia, unspecified; D72.819 Decreased white blood cell count, unspecified; D75.89 Other specified diseases of blood and blood-forming organs; E87.6 Hypokalemia; E88.09 Other disorders of plasma-protein metabolism, not elsewhere classified; E83.42 Hypomagnesemia; F40.01 Agoraphobia with panic disorder; K59.03 Drug induced constipation; Z79.899 Other long term (current) drug therapy; T40.2X5A Adverse effect of other opioids, initial encounter; G47.00 Insomnia, unspecified; F43.10 Post-traumatic stress disorder, unspecified; F17.210 Nicotine dependence, cigarettes, uncomplicated

== ENCOUNTER 2019-02-10 13:51 | Inpatient (IN) | payer BC, OTHER ==
[~2019-02-10] VITALS: Ht 170.2 cm; Wt 61.2 kg
[~2019-02-10 13:51] MED LIST: ASCO250T5 PO; Baclofen PO; CLON0.1T14 PO; DICY20TA28 PO; DULO60CA64 PO; ESOM40CA52 PO; FERR325T28 PO; Gabapentin PO; HYDR-3895 PO; Ibuprofen PO; LEVE500T9 PO; MULT-24 PO; PRAZ1CAP2 PO; QUET200T PO; QUET25TA PO; QUET400T12 PO
[2019-02-10] MEDS ORDERED: PROM25TA15 PO (14:10)
[2019-02-10] MEDS ORDERED: TRAZ-182 PO (14:10)
[2019-02-10] MEDS ORDERED: BUPR300T54 PO (14:10)
[2019-02-10] MEDS ORDERED: FLUO40CA49 PO (14:10)
[2019-02-10] MEDS ORDERED: GABA-534 PO (14:10)
[2019-02-10] MEDS ORDERED: QUET300T2 PO (14:10)
[2019-02-10] MEDS ORDERED: ESOM40CA PO (14:10)
[2019-02-10] MEDS ORDERED: DOXE50CA4 PO (14:10)
[2019-02-10] MEDS: MAGNESIUM SULFATE/D5W 100 ML IV SCH ×2 (14:30→15:30)
[2019-02-10 14:36] LABS: BASOPHILS # (AUTO) 0.1 K/uL (0.0-8.0); BASOPHILS % (AUTO) 1.4 % (0.0-2.0); EOSINOPHILS # (AUTO) 0.1 K/uL (0.0-0.7); EOSINOPHILS % (AUTO) 3.3 % (0.0-7.0); HEMATOCRIT 29.2 % (31.2-41.9); HEMOGLOBIN 9.1 g/dL (10.9-14.3); LYMPHOCYTES # (AUTO) 1.6 K/uL (20.0-40.0); LYMPHOCYTES % (AUTO) 42.1 % (20.5-51.5); MEAN CORPUSCULAR HEMOGLOBIN 21.5 uug (24.7-32.8); MEAN CORPUSCULAR HGB CONC 31 g/dL (32.3-35.6); MEAN CORPUSCULAR VOLUME 68.8 fL (75.5-95.3); MONOCYTES # (AUTO) 0.4 K/uL (2.0-10.0); NEUTROPHILS # (AUTO) 1.6 K/uL (1.8-8.9); NEUTROPHILS % (AUTO) 42.2 % (38.5-71.5); PLATELET COUNT (AUTO) 344 K/uL (179-408); RED BLOOD CELL COUNT(AUTO) 4.24 MIL/uL (3.63-4.92); WHITE BLOOD COUNT (AUTO) 3.9 K/uL (3.8-11.8)
[2019-02-10 14:40] LABS: CARBON DIOXIDE 29 mmol/L (21-32); CHLORIDE 110 mmol/L (98-107); CREATININE 0.8 mg/dL (0.6-1.3); GLUCOSE 84 mg/dL (74-106); POTASSIUM 3.5 mmol/L (3.5-5.1); UREA NITROGEN, BLOOD 5 mg/dL (7-18)
[2019-02-10 14:50] LABS: *BILIRUBIN,URIN NEGATIVE (NEGATIVE); *BLOOD, URINE NEGATIVE (NEGATIVE); *CLARITY,URINE CLEAR (CLEAR); *COLOR,URINE YELLOW (YELLOW); *KETONES,URINE NEGATIVE (NEGATIVE); *UROBILINOGEN,URINE 0.2 E.U./dl (NORMAL); LEUKOCYTE ESTERASE ,URINE NEGATIVE (NEGATIVE); NITRITE, URINE NEGATIVE (NEGATIVE); PH,URINE 7.5 (5.0-8.0); UGLUCOSE NEGATIVE (NEGATIVE)
[2019-02-10 14:51] LABS: *URINE HCG, QUAL NEGATIVE (NEGATIVE)
[2019-02-10 14:54] LABS: ACETAMINOPHEN < 2.0 ug/mL (10-30); ALANINE AMINOTRANSFERASE 25 U/L (14-59); ALKALINE PHOSPHATASE 94 U/L (50-136); ASPARTATE AMINOTRANSFERASE 58 U/L (15-37); BILIRUBIN,DIRECT < 0.1 mg/dL (0.0-0.2); BILIRUBIN,TOTAL 0.2 mg/dL (0.2-1.0); TOTAL PROTEIN, SERUM 6.4 g/dL (6.4-8.2)
[2019-02-10 14:56] LABS: ETHANOL < 3 MG/DL (0-0)
[2019-02-10 15:01] LABS: *AMPHETAMINE, URINE NEGATIVE (NEGATIVE); *BARBITURATE, URINE NEGATIVE (NEGATIVE); *CANNABINOID, URINE NEGATIVE (NEGATIVE); *COCCAINE, URINE NEGATIVE (NEGATIVE); *OPIATE, URINE NEGATIVE (NEGATIVE); *PHENCYCLIDINE SCREEN,URINE NEGATIVE (NEGATIVE)
[2019-02-10] MEDS ORDERED: MAGNESIUM SULFATE/D5W 200 ML ONE (15:48)
[2019-02-10 17:27] VITALS: BP 109/85
[2019-02-10] MEDS ORDERED: ACETAMINOPHEN 325 MG TABLET PO PRN (17:30)
[2019-02-10] MEDS ORDERED: MAGNESIUM HYDROXIDE 30 ML LIQUID UDC PO PRN (17:30)
[2019-02-10] MEDS ORDERED: ONDANSETRON 4 MG/2 ML VIAL IV PRN (17:30)
[2019-02-10] MEDS ORDERED: Z GUARD REMEDY PASTE 57 GM TUBE TOP PRN (17:30)
[2019-02-10] MEDS: IV D5 1/2 NS 1000 ML 1,000 ML IV PRN (17:51)
[2019-02-10 20:47] VITALS: BP 94/47
[2019-02-10 21:35] LABS: BILIRUBIN,DIRECT 0.1 mg/dL (0.0-0.2); BILIRUBIN,TOTAL 0.2 mg/dL (0.2-1.0); POTASSIUM 3.7 mmol/L (3.5-5.1); TOTAL PROTEIN, SERUM 6.2 g/dL (6.4-8.2)
[2019-02-10] MEDS: LORAZEPAM 2 MG/1 ML VIAL IV PRN (22:58)
[2019-02-11] VITALS: BP 108/70
[2019-02-11 06:00] VITALS: BP 105/64
[2019-02-11 08:00] VITALS: BP 103/68
[2019-02-11] MEDS: LORAZEPAM 2 MG/1 ML VIAL IV PRN ×4 (09:41→22:55)
[2019-02-11] MEDS: FAMOTIDINE. 20 MG/2 ML VIAL IV SCH (09:41)
[2019-02-11 11:00] VITALS: BP 103/67
[2019-02-11 12:09] LABS: BASOPHILS % (AUTO) 0.9 % (0.0-2.0); EOSINOPHILS % (AUTO) 0.4 % (0.0-7.0); HEMOGLOBIN 8.1 g/dL (10.9-14.3); LYMPHOCYTES # (AUTO) 1.5 K/uL (20.0-40.0); LYMPHOCYTES % (AUTO) 30.5 % (20.5-51.5); MEAN CORPUSCULAR HEMOGLOBIN 20.8 uug (24.7-32.8); MEAN CORPUSCULAR HGB CONC 31 g/dL (32.3-35.6); MEAN CORPUSCULAR VOLUME 66.7 fL (75.5-95.3); MONOCYTES # (AUTO) 0.4 K/uL (2.0-10.0); MONOCYTES % (AUTO) 8.9 % (0.0-11.0); NEUTROPHILS % (AUTO) 59.3 % (38.5-71.5); PLATELET COUNT (AUTO) 358 K/uL (179-408)
[2019-02-11 12:20] LABS: BILIRUBIN,DIRECT 0.1 mg/dL (0.0-0.2); BILIRUBIN,TOTAL 0.3 mg/dL (0.2-1.0); TOTAL PROTEIN, SERUM 6.5 g/dL (6.4-8.2)
[2019-02-11 12:22] LABS: CREATININE 0.9 mg/dL (0.6-1.3); PHOSPHOROUS 2.2 mg/dL (2.5-4.9); POTASSIUM 3.2 mmol/L (3.5-5.1)
[2019-02-11 12:26] LABS: THYROID STIMULATING HORMONE 1.582 mIU/mL (0.358-3.740)
[2019-02-11 16:00] VITALS: BP 101/62
[2019-02-11 16:30] LABS: BAND % (MANUAL) 5 % (0-10); EOSINOPHILS % (MANUAL) 1 % (0-8); LYMPHOCYTES % (MANUAL) 28 % (20-40); MONOCYTES % (MANUAL) 8 % (2-10); NEUTROPHILS % (MANUAL) 58 % (42-75)
[2019-02-11] MEDS ORDERED: SODIUM PHOSPHATE MM 15 MM in IV DEXTROSE 5% 250 ML IV ONE (16:30)
[2019-02-11 20:33] VITALS: BP 90/50
[2019-02-11] MEDS ORDERED: ACETYLCYSTEINE IV ONE ×3 (22:00→23:00)
[2019-02-11] MEDS ORDERED: DEXTROSE 5% IV ONE ×2 (22:00→23:00)
[2019-02-11] MEDS ORDERED: ACETYLCYSTEINE 10% 4ML VIAL ONE (22:09)
[2019-02-11] MEDS ORDERED: TRAZODONE 50 MG TABLET PO ONE (22:45)
[2019-02-11] MEDS: risperiDONE 1 MG TABLET PO SCH (22:45)
[2019-02-12 00:25] VITALS: BP 93/62
[2019-02-12] MEDS: IV D5 1/2 NS 1000 ML 1,000 ML IV PRN (00:56)
[2019-02-12 05:00] VITALS: BP 115/70
[2019-02-12] MEDS: LORAZEPAM 2 MG/1 ML VIAL IV PRN ×3 (05:50→14:08)
[2019-02-12 07:05] LABS: BASOPHILS # (AUTO) 0.1 K/uL (0.0-8.0); BASOPHILS % (AUTO) 1.7 % (0.0-2.0); EOSINOPHILS # (AUTO) 0.1 K/uL (0.0-0.7); EOSINOPHILS % (AUTO) 1.4 % (0.0-7.0); HEMATOCRIT 28.6 % (31.2-41.9); HEMOGLOBIN 8.7 g/dL (10.9-14.3); LYMPHOCYTES # (AUTO) 1.3 K/uL (20.0-40.0); LYMPHOCYTES % (AUTO) 24.4 % (20.5-51.5); MEAN CORPUSCULAR HEMOGLOBIN 21.1 uug (24.7-32.8); MEAN CORPUSCULAR HGB CONC 30 g/dL (32.3-35.6); MEAN CORPUSCULAR VOLUME 69.8 fL (75.5-95.3); MONOCYTES # (AUTO) 0.5 K/uL (2.0-10.0); MONOCYTES % (AUTO) 9.1 % (0.0-11.0); NEUTROPHILS # (AUTO) 3.5 K/uL (1.8-8.9); NEUTROPHILS % (AUTO) 63.4 % (38.5-71.5); PLATELET COUNT (AUTO) 334 K/uL (179-408); RED BLOOD CELL COUNT(AUTO) 4.09 MIL/uL (3.63-4.92); WHITE BLOOD COUNT (AUTO) 5.5 K/uL (3.8-11.8)
[2019-02-12 07:43] LABS: BILIRUBIN,DIRECT 0.1 mg/dL (0.0-0.2); BILIRUBIN,TOTAL 0.2 mg/dL (0.2-1.0); CREATININE 0.7 mg/dL (0.6-1.3); MAGNESIUM 1.7 mg/dL (1.8-2.4); PHOSPHOROUS 2.6 mg/dL (2.5-4.9); POTASSIUM 3.2 mmol/L (3.5-5.1); TOTAL PROTEIN, SERUM 5.9 g/dL (6.4-8.2)
[2019-02-12] MEDS: FAMOTIDINE. 20 MG/2 ML VIAL IV SCH (09:24)
[2019-02-12] MEDS: risperiDONE 1 MG TABLET PO SCH (09:27)
[2019-02-12 10:07] LABS: BAND % (MANUAL) 1 % (0-10); EOSINOPHILS % (MANUAL) 2 % (0-8); LYMPHOCYTES % (MANUAL) 26 % (20-40); MONOCYTES % (MANUAL) 5 % (2-10); NEUTROPHILS % (MANUAL) 66 % (42-75)
[2019-02-12 11:47] VITALS: BP 92/56
[2019-02-12] MEDS ORDERED: MAGNESIUM SULFATE/D5W 100 ML IV SCH (14:30)
[2019-02-12] MEDS ORDERED: POTASSIUM CHLORIDE 20 MEQ TAB.PRT.SR PO ONE (14:30)
[2019-02-12 15:09] VITALS: BP 101/65
[2019-02-12] MEDS ORDERED: TRAZODONE 50 MG TABLET PO SCH (21:00)
[2019-02-13] MEDS ORDERED: FAMOTIDINE 20 MG TABLET PO SCH (09:00)
== END 2019-02-12 16:45 | disposition left against medical advice (07) | DRG 917 ==
LOC: ER 13:51 → TELE3 16:44
PROVIDERS: ADMIT Student in an Organized Health Care Education/Training Program; ATTEND Student in an Organized Health Care Education/Training Program
DX: T65.91XA Toxic effect of unspecified substance, accidental (unintentional), initial encounter (principal); G92 Toxic encephalopathy; T76.21XA Adult sexual abuse, suspected, initial encounter; M62.82 Rhabdomyolysis; E87.0 Hyperosmolality and hypernatremia; E44.0 Moderate protein-calorie malnutrition; K50.90 Crohn's disease, unspecified, without complications; Y92.099 Unspecified place in other non-institutional residence as the place of occurrence of the external cause; E87.6 Hypokalemia; E83.42 Hypomagnesemia; F25.1 Schizoaffective disorder, depressive type; F50.9 Eating disorder, unspecified; M79.7 Fibromyalgia; Z79.899 Other long term (current) drug therapy; D50.9 Iron deficiency anemia, unspecified; F11.11 Opioid abuse, in remission; F14.11 Cocaine abuse, in remission
CPT/HCPCS: 36415; 70450; 80307; 83550; 83605; 83735; 84100; 84443; 84703; 85025; 86592; 87806; 93005; A4663; G0378; G0480; G0480-TC; J0132; J2060; J3475; J3490; J7060